=== PATIENT | female | born 1950 | race Caucasian/White ===

== ENCOUNTER → 2018-06-22 14:30 | Outpatient (CLI) | payer OTHER, SELFPAY | PROVIDERS: PCP Family Medicine; Visit Provider Student in an Organized Health Care Education/Training Program | DX: Z47.1 Aftercare following joint replacement surgery (principal); Z96.651 Presence of right artificial knee joint ==

== ENCOUNTER 2018-06-23 09:30 | Outpatient (RCR) | payer OTHER, SELFPAY ==
--- NOTE | 2018-06-23 10:01 | PTTR_ITS ---
DATE: 06/23/18 SUBJECTIVE: I am doing okay for the most part. OBJECTIVE: Manual therapy: ([id number]): Patient was placed in sitting and mobilized with gentle oscillatory traction through the knee while guided through a limited arc of motion from 60-10 degrees. She was then mobilized through anterior glides of the tibia on a fixed femur to improve articular glide and capsular extensibility. Patient rotated with tibial torsion through external and internal rotation. She was then mobilized through contract relax muscle energy technique with reduced muscle tension through the quad to allow further flexion ability. Patient tolerated treatment well and will be given the option to call in if there are any future mobilizations needed before she heads down to [place] for the winter. Direct treatment time: 30 minutes of direct patient care.
== END 2018-07-17 23:59 | disposition home or self-care (01) ==
LOC: PT 09:30
PROVIDERS: PCP Family Medicine; Referring Provider Student in an Organized Health Care Education/Training Program; Visit Provider Student in an Organized Health Care Education/Training Program
DX: Z47.1 Aftercare following joint replacement surgery (principal); Z96.651 Presence of right artificial knee joint
CPT/HCPCS: 97140

== ENCOUNTER → 2018-07-03 09:16 | Outpatient (REF) | payer OTHER, SELFPAY ==
[2018-07-03 12:53] LABS: HCT 44.4 % (36.0-46.0); HGB 14.4 g/dL (12.0-15.5); Mean Corp. HGB Concentration 32.4 g/dL (32.0-36.0); Mean Corpuscular Hemoglobin 27.8 pg (27.0-33.0); Mean Corpuscular Volume 85.7 fL (80-95); Mean Platelet Volume 11.7 fL (8.0-11.0); Platelet Count 197 x1000/uL (130-400); RBC 5.18 m/cumm (4.00-5.20); RBC Distribution Width 15.4 % (11.7-14.6); White Blood Cell Count 6.65 k/cumm (4.4-10.8)
[2018-07-03 16:01] LABS: ALT 25 U/L (12-78); AST 15 U/L (15-37); Albumin 3.6 g/dL (3.4-5.0); Alkaline Phosphatase 76 U/L (46-116); Anion Gap 11.2 mmol/L (3-11); BUN 22 mg/dL (7-18); Bilirubin, Total 0.4 mg/dL (0.2-1.0); CO2 25.8 mmol/L (21.0-32.0); CREATININE 0.84 mg/dL (0.55-1.02); Calcium 9.5 mg/dL (8.5-10.1); Chloride 105 mmol/L (98-107); Cholesterol 161 mg/dL (50-200); Glucose 91 mg/dL (70-100); HDL Cholesterol 47 mg/dL (40-60); LDL CHOLESTEROL 94 mg/dL (<100); Sodium 142 mmol/L (136-145); Total Protein 6.9 g/dL (6.4-8.2); Triglyceride 173 mg/dL (30-150)
[2018-07-03 21:06] LABS: TSH 1.77 uIU/mL (0.358-3.74)
== END ==
LOC: NCHCN 09:16
PROVIDERS: PCP Family Medicine; Visit Provider Family Medicine
DX: Z00.00 Encounter for general adult medical examination without abnormal findings (principal); I10 Essential (primary) hypertension; E78.5 Hyperlipidemia, unspecified
CPT/HCPCS: 80053; 80061; 83721; 85027; 84443

== ENCOUNTER 2018-08-06 00:14 | Outpatient (CLI) | payer OTHER, SELFPAY ==
--- NOTE | 2018-08-06 14:30 | DI.RAD_ITS ---
SYMPTOMS/DIAGNOSIS: MENOPAUSAL, Z78.0 DEXA SCAN: The scanogram of the dorsolumbar spine is unremarkable. For the left forearm, a T score of -0.7 and a Z score of 1.0 indicate osteopenia and an increased fracture risk. For the left hip, a T score of 1.1 and a Z score of 2.4 are within the normal range. For the lumbar spine, a T score of 0.5 and a Z score of 2.3 are within the normal range.
== END 2018-08-06 00:34 ==
PROVIDERS: PCP Family Medicine; Visit Provider Family Medicine
DX: M85.88 Other specified disorders of bone density and structure, other site (principal); Z78.0 Asymptomatic menopausal state
CPT/HCPCS: 77080

== ENCOUNTER 2019-03-18 08:53 | Outpatient (CLI) | payer OTHER, SELFPAY ==
--- NOTE | 2019-03-18 08:14 | HPE_ITS ---
Assessment and Plan (1) Left knee DJD: Current visit: No Status: Chronic Plan: Educated patient on surgery covering surgical technique via prosthesis models, recovery process, benefits and risks including but not limited to risk of infection, blood clot, damage to soft tissue/blood vessels/nerves in detail. After discussion patient gives verbal understanding of risks and elects to proceed with scheduling surgery. Discussed that post- operative DVT prophylaxis will be determined by Dr. Ly. As per patient she also requests larger TEDs be given so that she does not have stocking bunched behind her knee. Patient had opportunity to have questions answered to her satisfaction. She will contact office if issues arise. Patient will continue to be scheduled for left total knee replacement with Dr. Ly on 03/23/2019. Qualifiers: Osteoarthritis type: primary Qualified Code(s): M17.12 - Unilateral primary osteoarthritis, left knee History of Present Illness Narrative: Ms. Jerry is a 69-year-old female who presents to clinic for pre- operative visit for scheduled Left TKA with Dr. Ly on 03/23/19. Patient had originally presented to orthopedic clinic for complaints of bilateral knee soreness and stiffness restricting her flexibility. She is status post right total knee replacement on 02/22/2018 which was complicated with acute pulmonary embolism diagnosed on 03/26/2018. Patient was treated with Xarelto for a 4 month course. Patient states since having her right knee replaced she has continued to have restriction of her left knee. She states severely limited flexibility that affects activities of daily life. She describes pain as a soreness and stiffness aggravated with prolonged standing, attempting to squat, kneeling, sitting in the knee bent for more than a few minutes and most severely when descending stairs. Although patient has continued to swim daily for exercise she states she is unable to engage in other activities due to restricted left knee range of motion. As per patient she had previously tried corticosteroid injection in the left knee without symptomatic improvement - no injection history is noted in review of patient's chart. Patient has also tried Advil in the past without symptomatic improvement. Patient denies any trauma to the left knee. Denies symptoms of knee instability, giving out, numbness or tingling. Due to her continued left knee symptoms patient elected to proceed with left TKA. Pertinent Surgical Information Additional standing alignment film was not done since patient had standing alignment films done for postop right total knee replacement and since surgical order states OrthoAlign will be used. Patient's right knee had femoral component size 5, fixed platform tibial component size 4, 5 x 7 mm fixed, stabilized poly and patellar component size 32 mm. Patient underwent right total knee replacement on 03/24/18 but then developed shortness of breath while walking the hallway with physical therapist. She underwent a CT scan and was diagnosed with acute pulmonary embolism on postop day 2 (03/26/18). She was treated with Xarelto for total of 4 months. Patient states she discontinued Xarelto in July 2018. She denies any recurrent shortness of breath, respiratory or cardiac complaints. Denies past medical history of: stroke, angina, asthma, COPD, sleep apnea, renal issues, liver issues, hepatitis, gastrointestinal issues, ulcers, bleeding disorders, seizures, migraines, anxiety, depression, diabetes, autoimmune disorders, thyroid issues Denies prior complications from anesthesia. Review of Systems Constitutional Denies fever(s), Denies frequent falls and Denies headache(s) Eyes Denies change in vision ENT Denies dizziness, Denies ear discharge, Denies headache(s), Denies epistaxis, Denies nasal discharge and Denies sore throat Cardiovascular Denies chest pain, Denies chest pain at rest, Denies chest pain with activity, Denies diaphoresis, Denies rapid heart rate, Denies irregular heart rhythm, Denies palpitations, Denies dyspnea, Denies dyspnea on exertion, Denies ort hopnea, Denies paroxysmal nocturnal dyspnea and Denies slow heart rate Respiratory Denies cough, Denies dyspnea, Denies dyspnea on exertion and Denies wheezing Comments: Denies any shortness of breath since her PE was diagnosed on 03/26/18 Gastrointestinal Denies abdominal pain, Denies melena, Denies hematochezia, Denies constipation, Denies diarrhea, Denies nausea and Denies vomiting Genitourinary Denies hematuria, Denies dysuria and Denies urinary urgency Musculoskeletal Reports as per HPI, Denies numbness and Denies tingling Neurologic Denies dizziness, Denies frequent falls, Denies headache(s), Denies numbness and Denies tingling Psychiatric Denies anxiety and Denies depression Endocrine Denies palpitations Allergic/Immunologic Denies wheezing PFSH Medical History Hyperlipidemia (Chronic) Hypertension (Chronic) Left knee DJD (Chronic) History of pulmonary embolism (Chronic) Surgical History Status post tonsillectomy and adenoidectomy (Chronic) History of carpal tunnel release (Chronic) Status post total right knee replacement (Chronic) Colonoscopy - IV Sedation (06/25/16) Family History Mother No problems noted. Father Stroke Hypertension Social History Smoking/Tobacco Use Status: Never Drug use: Never Meds Home Medications Medication Instructions Recorded Confirmed Type hydrochlorothiazide 25 mg PO DAILY tab-cap 04/25/16 03/18/19 History simvastatin 40 mg PO HS tab-cap 04/29/16 03/18/19 History Allergies Allergy/AdvReac Type Severity Reaction Status Date / Time No Known Allergies Allergy Unverified 03/19/19 10:09 Exam Const General: cooperative and no acute distress HENMT Head: normal to inspection, normocephalic and atraumatic Ears: external ears normal General nose exam: external nose normal and no nasal discharge Face and sinus: face symmetric Mouth: oral mucosae normal, lip normal, tongue normal and moist mucous membranes Teeth and gingiva: dentition normal Throat: posterior oropharynx normal Eyes General: appearance normal, both eyes and all related structures Pupils: PERRL EOM: EOM intact bilaterally Neck Neck: trachea midline Carotids: normal carotid upstroke Lymphatic: no lymphadenopathy noted Resp Effort & Inspection: normal respiratory effort and able to speak in complete sentences Auscultation: clear to auscultation bilaterally, no rales, no rhonchi and no wheezes Cardio Heart Sounds: S1 normal, S2 normal and no murmurs Pulses: radial pulses present bilaterally GI Palpation: soft, no hepatosplenomegaly and nontender Auscultation: normal bowel sounds Skin General skin exam: no rashes or lesions noted Extrem Other: Left knee examination: Skin is intact without signs of erythema, lesions or rash. No signs of effusion are noted. Active range of motion is short of full extension by 20 degrees and yields flexion of 75 degrees. Passive range of motion is short of full extension by 15 degrees and yields flexion of 90 degrees with slight discomfort elicited at end of range of motion. Knee is stable to valgus and varus stress. Results Labs : 03/18/19 09:45 03/18/19 09:45
[2019-03-18 10:12] LABS: HCT 45.8 % (36.0-46.0); HGB 15.2 g/dL (12.0-15.5); Mean Corp. HGB Concentration 33.2 g/dL (32.0-36.0); Mean Corpuscular Hemoglobin 28.5 pg (27.0-33.0); Mean Corpuscular Volume 85.9 fL (80-95); Mean Platelet Volume 10.8 fL (8.0-11.0); Platelet Count 244 x1000/uL (130-400); RBC 5.33 m/cumm (4.00-5.20); RBC Distribution Width 15.2 % (11.7-14.6); White Blood Cell Count 7.04 k/cumm (4.4-10.8)
[2019-03-18 10:44] LABS: Anion Gap 11.3 mmol/L (3-11); BUN 17 mg/dL (7-18); CO2 27.7 mmol/L (21.0-32.0); CREATININE 0.88 mg/dL (0.55-1.02); Calcium 9.7 mg/dL (8.5-10.1); Chloride 102 mmol/L (98-107); Glucose 96 mg/dL (70-100); Potassium 3.1 mmol/L (3.5-5.1); Sodium 141 mmol/L (136-145)
== END 2019-03-18 09:13 ==
PROVIDERS: PCP Family Medicine; Visit Provider Student in an Organized Health Care Education/Training Program
DX: M25.562 Pain in left knee (principal); M17.12 Unilateral primary osteoarthritis, left knee; Z01.818 Encounter for other preprocedural examination
CPT/HCPCS: 36415; 80048; 85027; NC

== ENCOUNTER 2019-03-23 08:24 | Inpatient (IN) | payer OTHER, SELFPAY ==
[2019-03-18 09:09] VITALS: BP 138/90; PULSE 86; RESP 18; TEMP 36.7; O2SAT 95
[2019-03-18 09:14] VITALS: BP 138/90; PULSE 86; RESP 18; TEMP 36.7; O2SAT 95
[2019-03-23] VITALS (12 sets, daily range): BP systolic 106–141; BP diastolic 50–85; PULSE 58–80; RESP 11–20; TEMP 35.5–36.6; O2SAT 94–100
[2019-03-23] MEDS: Lactated Ringers 1,000 ML 80 ML IV ×2 (08:59→15:02)
[2019-03-23] MEDS: Celecoxib 200 MG CAP 400 MG PO (09:46)
[2019-03-23] MEDS: Acetaminophen 500 MG TAB 1000 MG PO ×2 (09:46→17:54)
[2019-03-23] MEDS: oxyCODONE-CR 10 MG TABCR PO (09:47)
[2019-03-23] MEDS: Gabapentin 300 MG CAP PO ×2 (09:47→21:21)
[2019-03-23] MEDS: Bupivacaine LIPOSOME/PF 133 MG/10 ML VIAL IJ ×2 (10:40→12:50)
[2019-03-23] MEDS: ceFAZolin 2 GM/50 ML BAG IVPB (11:10)
[2019-03-23] MEDS: Ketorolac 30 MG/ML VIAL (12:50)
[2019-03-23] MEDS: Normal Saline 50 ML (12:50)
[2019-03-23] MEDS: Bupivacaine 0.25% Pres-Free 30 ML VIAL (12:50)
[2019-03-23] MEDS: oxyCODONE 5 MG TAB PO (15:33)
[2019-03-23] MEDS: Rivaroxaban 10 MG TABLET PO (19:54)
[2019-03-23] MEDS: Celecoxib 100 MG CAP PO (19:55)
[2019-03-23] MEDS: Simvastatin 40 MG TAB PO (21:21)
[2019-03-24] MEDS: Lactated Ringers 1,000 ML 80 ML IV (02:24)
[2019-03-24] MEDS: Acetaminophen 500 MG TAB 1000 MG PO ×3 (02:58→18:10)
[2019-03-24 03:27] VITALS: BP 101/59; PULSE 71; RESP 18; TEMP 36.8; O2SAT 97
--- NOTE | 2019-03-24 05:51 | ROE_ITS ---
Date of service: 03/23/19 Time of Service: 14:46 Operative Note DATE OF PROCEDURE: 03/23/19 PRE-OP DIAGNOSIS: Left Knee Arthritis POST-OP DIAGNOSIS: same PROCEDURE: Left Total Knee Arthroplasty with Intraoperative Navigation SURGEON: Rk Ly EDGE DRUMMER: Perri Aragon ANESTHESIA: regional and spinal ESTIMATED BLOOD LOSS: 400 PATHOLOGY: none sent TOURNIQUET TIME: 15 COMPLICATIONS: None Patient was transported to: PACU Patient's condition: stable Implants: 1. Depuy Attune Posterior Stabilized Femoral Component, Size 5 2. Depuy Attune Fixed Platform Tibial Component, Size 4 3. Depuy Attune 5 x 8 mm fixed, Stabilized Poly 4. Depuy Attune Patellar Component, Size 32 mm Indications: I have seen Wanda in clinic for symptoms of knee arthritis, confirmed with radiographic findings. Wanda has exhausted nonoperative methods and was having significant limitations in daily function and desired better function and less pain. She successfully underwent a total knee replacement on the right side with excellent results. I discussed the technical details of a knee replacement. I explained the risks of the procedure to include, but not limited to, bleeding, infection, pain, stiffness, fracture, damage to nerves and vessels, damage to muscles and tendons, loosening, need for repeat procedure, blood clot and cardiopulmonary demise. Despite these risks, Wanda elected to proceed. Findings: There was significant signs of arthritis throughout the knee. Large osteophytes are present throughout especially posteriorly where time was taken to remove large impinging osteophytes from the posterior femur and tibia. Procedure Description: Wanda was greeted in the preoperative holding area where the correct side was identified and marked. The consent was reviewed with the patient and signed. The history and physical was updated. All questions were answered. Preoperative mediacations were administered: Acetaminophen 1000mg, Celebrex 400mg, Gabapentin 300mg, and Oxycontin 10mg. An adductor canal block was then administered by the anesthesia team in the PACU. She was taken back to the operating room. A spinal anesthestic was then administered. The patient was placed into the supine position on the operating room table. A nonsterile tourniquet was placed high onto the leg but only used for cementing. Posts were placed for positioning during the procedure. All bony prominences were well padded. Prophylactic antibiotics in the form of cefazolin were administered. 1g of Tranxemic Acid was given intravenously within 30 minutes of incision. The left leg was then prepped with Chloraprep and draped in a standard fashion with impervious stockinette and extremity drape with Iodine impregnated skin protection. A timeout to confirm correct identity, side and site, procedure, allergies, anesthesia, and medical concerns was performed. With the knee in some flexion, a midline incision was made overlying the knee. Full thickness skin flaps were raised once the extensor mechanism was encountered. These were raised medially and laterally. Any bleeding was controlled with electrocautery. Once the extensor mechanism was fully exposed, a medial parapatellar arthrotomy was performed in a flexed position. All bleeding from the arthrotomy and the geniculate arteries was coagulated. A medial subperiosteal peel was performed with electrocautery to the midcoronal plane. Due to the significant varus deformity the entire medial tibial plateau was exposed. The fat pad was removed while keeping the patellar tendon protected. The anterior distal femur synovium was removed for later visualization. The ACL and PCL were resected and the anterior horn of the lateral meniscus was transected. The knee was then flexed with the patella everted. Large osteophytes from the tibia were removed. Large osteophytes from the femur were removed. There is a large central osteophyte seen within the notch extending posteriorly behind the femur which was unable to be exposed at this time but was taken care of later. A single starting pin was then placed 1cm anterior to the PCL insertion and the notch in the direction of the femoral head. The OrthoAlign device was applied o myles the pin. It was oriented to be in line with the epicondylar axis and the trochlear groove. It was then pinned into place. The navigation computer was then turned on and calibrated. The distal femur cut was set at 0 degrees varus/valgus and 2.5 degrees flexion. The distal femur cutting guide then was positioned for a 11 mm cut. The distal femur was cut with an oscillating saw while protecting the soft tissues. The tibia was then addressed. The OrthoAlign device was placed over the tibial tubercle and medial tibia and secured into position. Once again, OrthoAlign was calibrated and then set for a 0 degree varus/valgus cut and 3 degrees of posterior slope. With this locked into position, the cut thickness stylus was used to assess cut thickness. The medial side, most involved side, was set for a 2mm cut. This was then held in position and pinned into place with 2 additional pins and a cross pin for stability. The medial and lateral collateral ligaments were protected and the cut was performed. With this completed, it was assessed and noted to be of appropriate dimensions. The guide and OrthoAlign was removed. A spacer block was inserted and the knee was brought into extension. The 6 mm spacer block provided full extension, without hyperextension and with stability of both the medial and lateral collateral ligaments was assessed. The pins from the femur and the tibia were then removed. The distal femur was then sized. The anterior stylus was placed onto the lateral ridge of the anterior femur. This indicated a size 5 femur. The external rotation of the guide was adjusted to 3 degrees to match the epicondylar axis, perpendicular to [place]?s line. The 4-in-1 cutting guide was the placed. The posterior medial femur cut was evaluated and appeared of good thickness. The spacer block was inserted underneath the cutting guide and stability was confirmed in 90 degrees of flexion. An manish wing was used to confirm appropriate position of the anterior cut to avoid notching. This cutting guide was ensured to be flush on the cut surface and then pinned into place with headed pins. While protecting the soft tissues, quad tendon, and collateral ligaments, the anterior and posterior cuts were performed with a saw. The central two pins were removed and the posterior and anterior chamfers were cut next. The notch-cutting guide was placed. This was pinned to lateralize the femoral component as much as possible while keeping it flush on the cut surface. This was then pinned into position. A reciprocating saw was used to make the notch cut. A rasp smoothed the cut surfaces. Using a curved osteotome I remove large osteophytes from the posterior aspect of the femur. I had a stripped off some the posterior soft tissues from the femur. Large osteophytes from the posterior aspect of the tibia were also removed. A trial posterior stabilized femoral component was then inserted, impacted down to the cut surfaces, and the lug hole s were drilled. A provisional trial tibial component was placed and the knee was brought through range of motion. The polyethylene was trialed until there was good flexion and extension with excellent stability to the medial and lateral collaterals. The patella was tracking without thumbs. The tibial cut surface was fully exposed. The medial and lateral menisci were removed. The tibia was then sized as a 4. The tibia had been previously marked during trialing to correspond to the center of the tibial component to help with rotation. The trial was aligned to this alba, approximately rotated to the medial 1/3rd of the tibial tubercle. The trial was pinned into place. The tibia was prepared with a reamer and a keel punch. The knee was then brought into extension and the patella was measured as 25 mm. Using the patellar clamp and cut guide, this was resected to a flat surface with at least 13mm of thickness remaining. The size 32 patella fit the best. This was oriented and then clamped into position. The lugs were drilled. The trial components were removed. The final components, except for the polyethylene were opened on the back table. The periosteal and capsular tissues, especially posteriorly, around the knee were then systematically injected with a periarticular cocktail consisting of 50cc 0.25% Marcaine, 30mg Ketorolac, 20cc of Exparal and 50cc of injectable saline. The tourniquet was then inflated to 275mmHg. The knee was thoroughly irrigated with a pulse lavage and dried. On the back table, with the implants opened, the cement was mixed. 2 batches of antibiotic laden cement were prepared with vacuum assistance. After the cement was ready a small amount was placed on to the back side of the tibial component at the keel. A small amount was placed onto the posterior flange of the femur. Cement was manual pressurized and impregnated into the cut surface of the tibia. The tibial component was then inserted into the cut surface and impacted into position. Excess cement was removed and the component was reimpacted. Again, excess cement was removed and our attention was then turned to the femur. The femoral cut surface was once again dried and cement was manually impacted into the cut surface. The femoral component was lined with the lug holes and impacted. Excess cement was removed. It was ensured to be down against the cut surface. The trial polyethylene was then inserted and the leg was brought out into full extension for the duration of the cement curing process, approximately 15min. Cement was lastly manually impacted into the cut surface of the patella and the patellar button was clamped into position and held. During this process attention was turned to the gutters of the knee and for all interfaces for any e xcess cement. After the cement had finally cured, approximately 15min, the clamp was removed from the patella and the knee was taken through range of motion. A size 8 mm polyethylene component provided the best range of motion and stability with less than 2mm gapping with medial and lateral stress and full extension without significant hyperextension. The patella was tracking with a no-thumbs technique. The trial poly was removed and once again the knee was checked for any loose, excess, or errant cement. The poly component was then inserted and impacted into position after cleaning and drying the tibial tray. The capsule was then reapproximated with a No. 1 Vicryl at multiple locations. The capsule was finally closed with a No. 2 Stratafix, barbed suture. The tourniquet was then released and the arthrotomy appeared watertight without significant bleeding. The second dosing of 1g TXA was started. Deep tissues were then reapproximated with 0 Vicryl and 2-0 Vicryl. The skin was closed with a running 3-0 Monocryl in a subcuticular fashion. This was reinforced with skin glue. A Mepilex silver dressing was applied along with a [id number] FREDY wrap. A CryoCuff was applied. Wanda was transferred to the hospital bed without difficulty an suffering no apparent complication. Wanda has a good prognosis. Physical therapy will start today and without restrictions, weight-bearing as tolerated. Rivaroxaban 10 mg a day will be used for DVT prophylaxis given her history of pulmonary embolism.
[2019-03-24 07:31] LABS: HCT 35.8 % (36.0-46.0); HGB 11.4 g/dL (12.0-15.5); Mean Corp. HGB Concentration 31.8 g/dL (32.0-36.0); Mean Corpuscular Hemoglobin 27.9 pg (27.0-33.0); Mean Corpuscular Volume 87.7 fL (80-95); Mean Platelet Volume 10.6 fL (8.0-11.0); Platelet Count 245 x1000/uL (130-400); RBC 4.08 m/cumm (4.00-5.20); RBC Distribution Width 14.9 % (11.7-14.6); White Blood Cell Count 8.85 k/cumm (4.4-10.8)
[2019-03-24 07:34] LABS: Anion Gap 5.7 mmol/L (3-11); BUN 22 mg/dL (7-18); CO2 30.3 mmol/L (21.0-32.0); CREATININE 0.81 mg/dL (0.55-1.02); Calcium 8.5 mg/dL (8.5-10.1); Chloride 105 mmol/L (98-107); Glucose 92 mg/dL (70-100); Potassium 3.1 mmol/L (3.5-5.1); Sodium 141 mmol/L (136-145)
[2019-03-24 07:36] VITALS: BP 110/60; PULSE 72; RESP 16; TEMP 36.1; O2SAT 92
--- NOTE | 2019-03-24 07:58 | PDOC.CMIN ---
Care Management Initial Assess REASON FOR HOSPITALIZATION:: (L) Knee DJD PAST MEDICAL HISTORY/PAST SURGICAL HISTORY:: Depression, Hypertension, High Cholesterol, right hand carpal tunnel release PREVIOUS FUNCTIONAL STATUS/SOCIAL/FAMILY SUPPORTS:: Marsha resides in [place] with her significant other, David. She also has a son Tomas who she reports she is very close with. Marsha worked for more than forty years as a [employer] and reports missing the social aspect of the work but shares that David and herself spend [place] in a 55[place] community of which she has many friends. She reports being a member locally with [employer] which also keeps her busy. Marsha reports being independent with all ADLs in the community. CURRENT FUNCTIONAL STATUS:: Marsha was lying in bed, her significant other, David at her bedside. She shared concerns regarding increased discomfort and mobility, sharing that her car is a distance from her home and she has three steps to enter and did not feel ready at this time. CM reviewed CM contact info and assured Marsha she would not be discharged home until she could do so safely. ADVANCE DIRECTIVES:: Marsha reports she has completed the document with a local sports lawyer and believes her son Tomas is named as Agent. Has patient been provided with information about the portal?: Yes Did the patient sign up for the portal?: No CODE STATUS:: Full Code INSURANCE COVERAGE / FINANCIAL ISSUES:: [facility] Medicare Replacement CURRENT HOME/COMMUNITY SERVICES/EQUIPMENT:: OP/PT with [facility]. FWW, 4WW, 4 prong cane. PRIMARY CARE PHYSICIAN:: Luna Freire; [facility] POTENTIAL DISCHARGE NEEDS:: Follow up appointment with Dr. Ly, PCP. PATIENT/FAMILY EDUCATION NEEDS:: Review discharge instructions, discuss Ask Me Three. ANTICIPATED BARRIERS TO DISCHARGE:: None identified. TRANSPORTATION:: Via private vehicle with her significant other; David. PLAN:: Marsha will return home when ready per MD. She will follow up with Dr. Ly and her plan of care as prescribed including activity restrictions and medication recommendations. She has all DME needed for discharge. Marsha will transport home via private vehicle with her significant other; David.
[2019-03-24] MEDS: Pantoprazole 40 MG TABCR PO (08:01)
[2019-03-24] MEDS: oxyCODONE 5 MG TAB PO ×3 (08:01→18:10)
--- NOTE | 2019-03-24 08:04 | INITIAL_ITS ---
Care Management Initial Assess REASON FOR HOSPITALIZATION:: (L) Knee DJD PAST MEDICAL HISTORY/PAST SURGICAL HISTORY:: Depression, Hypertension, High Cholesterol, right hand carpal tunnel release PREVIOUS FUNCTIONAL STATUS/SOCIAL/FAMILY SUPPORTS:: Marsha resides in [place] with her significant other, David. She also has a son Tomas who she reports she is very close with. Marsha worked for more than forty years as a [employer] and reports missing the social aspect of the work but shares that David and [place] of which she has many friends. She reports being a member locally with [employer] which also keeps her busy. Marsha reports being independent with all ADLs in the community. CURRENT FUNCTIONAL STATUS:: Marsha was lying in bed, her significant other, David at her bedside. She shared concerns regarding increased discomfort and mobility, sharing that her car is a distance from her home and she has three steps to enter and did not feel ready at this time. CM reviewed CM contact info and assured Marsha she would not be discharged home until she could do so safely. ADVANCE DIRECTIVES:: Marsha reports she has completed the document with a local mail deliverer and believes her son Tomas is named as Agent. Has patient been provided with information about the portal?: Yes Did the patient sign up for the portal?: No CODE STATUS:: Full Code INSURANCE COVERAGE / FINANCIAL ISSUES:: [facility] Medicare Replacement CURRENT HOME/COMMUNITY SERVICES/EQUIPMENT:: OP/PT with [facility]. FWW, 4WW, 4 prong cane. PRIMARY CARE PHYSICIAN:: Luna Freire; [facility] POTENTIAL DISCHARGE NEEDS:: Follow up appointment with Dr. Ly, PCP. PATIENT/FAMILY EDUCATION NEEDS:: Review discharge instructions, discuss Ask Me Three. ANTICIPATED BARRIERS TO DISCHARGE:: None identified. TRANSPORTATION:: Via private vehicle with her significant other; David. PLAN:: Marsha will return home when ready per MD. She will follow up with Dr. Ly and her plan of care as prescribed including activity restrictions and medication recommendations. She has all DME needed for discharge. Marsha will transport home via private vehicle with her significant other; David.
[2019-03-24] MEDS: Celecoxib 100 MG CAP PO ×2 (09:03→20:15)
[2019-03-24] MEDS: Potassium Chloride 20 MEQ TABCR PO (09:03)
[2019-03-24] MEDS: hydroCHLOROthiazide 25 MG TAB PO (09:03)
[2019-03-24] MEDS: Docusate Sodium 100 MG CAP PO (09:48)
[2019-03-24] MEDS: Normal Saline Flush 10 ML SYR IV (11:03)
--- NOTE | 2019-03-24 11:23 | PT.INIE ---
Date of service: 03/24/19 Time of Service: 08:08 PT Notes Inpatient Physical Therapy Evaluation Date: 03/24/2019 Referring Doctor: Rk Ly MD PT Orders: PT CONSULT: Status post left TKA Precautions: Fall. Standard. WBAT on L LE. Patient Profile/Admitting Diagnosis: Patient is a 69-year-old female referred to physical therapy services with the diagnosis of left knee DJD status post left total knee athropplasty on POD 1. PMHX: Medical History Hyperlipidemia (Chronic) Hypertension (Chronic) Left knee DJD (Chronic) History of pulmonary embolism (Chronic) Surgical History Status post tonsillectomy and adenoidectomy (Chronic) History of carpal tunnel release (Chronic) Status post total right knee replacement (Chronic) Colonoscopy - IV Sedation (06/25/16) Social History/Home Situation: Patient lives alone in a 1 floor house with a ramp to enter through the kitchen, rails on B sides. She was independent with all aspects of ADLs without the need for use of an AD nor adaptive equipment. Current Functional Limitations: Need for assistance in performing bed mobility using bedrail, transfers, and ambulation using FWW Equipment Owned/DME: Standard walker, [place] Subjective: Patient pleasant and cooperative. Reports that she had a restless night. She also states she had an increase in anxiety and reported she got clammy when assisted by LNAs to stand up last night. She states she has not moved her bowels yet. Objective: General Observation: Patient seen resting in bed. IV in L UE. FREDY wraps on L LE. Arora catheter in place,. Anti DVT pump on R leg. Mental Status: Alert and oriented x3 Pain: 2/10 at rest, 3/10 with weightbearing Vital Signs: In the supine 115/74 mmHg, 71 bpm, 94% on room air. In sitting, 124/77, 95% on room air, 83 bpm. In standing, 127/76 mmHg, 76 bpm, 95% on room air. ROM: Right Upper Extremity: Shoulder Flexion WFL. Shoulder abduction WFL. Elbow flexion WFL. Wrist flexion WFL. Functional opening and closing of hand WFL. Left Upper Extremity: Shoulder Flexion WFL. Shoulder abduction WFL. Elbow flexion WFL. Wrist flexion WFL. Functional opening and closing of hand WFL. Right Lower Extremity: Hip flexion WFL. Hip abduction WFL. Knee flexion WFL. Ankle dorsiflexion WFL. Ankle plantarflexion WFL. Left Lower Extremity: Hip flexion 0-100 range limited by abdominal panniculus. Hip abduction 0-20. Knee flexion 0 to 30 degree in supine passively. Sitting patient was able actively bankruptcy law specialist to 90 degrees with minimal discomfort at end range. Patient able to assume full knee extension actively. Ankle dorsiflexion WFL. Ankle plantarflexion WFL. Strength: Right Upper Extremity: Shoulder flexors 5/5. Shoulder abductors 5/5. Elbow flexors 5/5. Elbow extensors 5/5. Powder Mill Operator strong. Left Upper Extremity: Shoulder flexors 5/5. Shoulder abductors 5/5. Elbow flexors 5/5. Elbow extensors 5/5. Powder Mill Operator strong. Right Lower Extremity: Hip flexors 5/5. Hip abductors 5/5. Knee flexors 5/5. Knee extensors 5/5. Ankle dorsiflexors 5/5. Ankle plantarflexors 5/5. Left Lower Extremity:Hip flexors 3-/5. Hip abductors 3-/5. Knee flexors 3-/5. Knee extensors 4-/5. Ankle dorsiflexors 4+/5. Ankle plantarflexors 4+/5. Sensation: Intact chest pain and pressure on right LE, diminished on left LE. Bed Mobility/Transfers: Rolling minimal assist to left LE Supine to sit minimal assist to left LE Sit to supine minimal assist to left LE Sit to stand minimal assist with FWW Stand to sit minimal assist with FWW Bed to chair minimal assist with FWW Chair to bed minimal assist with FWW Gait: Patient was able to tolerate in room ambulation with CGA, 5 feet forward and 5 feet backward, minimal verbal cues needed for walker management and step-to gait pattern. Patient anxious about walking activity but subsided when she found out when she is able to walk with a walker. Balance: Static Sitting: Good Dynamic Sitting: Good Static Standing: Fair Dynamic Standing: Fair Special Tests: Mobility Limitations Standardized Measure [facility] AM-PAC 6 clicks Basic Mobility Inpatient Short Form: Raw Score: 18 CMS Score: 47% deficit Informed Consent/Education: Patient instructed in purpose of PT consult and plan of care. Patient was also instructed on hourly performance of gluteal settings as well as ankle pumping x 30 in order to maximize range goals. Assessment: Patient is a 69 year old female referred to physical therapy services with the diagnosis of left knee DJD status post left total knee athropplasty. Patient presents with clinical signs and symptoms consistent with current/admitting diagnoses that have resulted to mobility limitations, gait instability, generalized weakness, and impairment of motor control as demonstrated by the following impairment level findings: 1. Decreased strength Madi LE major muscle groups 2. Impaired sitting/standing balance 3. Impaired activity tolerance 4. Limitation of joint range of motion in left hip Impairments are contributing to the following functional limitations: 1. Dependent bed mobility skills 2. Increased dependence with transfers 3. Inability to safely ambulate without assistive device and physical assistance 4. Increase completion time for mobility ADL performance 5. Increased fall risk 6. Inability to negotiate steps alone safely Patient is assessed as a Moderate 24072 complexity based on the following: History: 69-year-old female referred to physical therapy services with the diagnosis of left knee DJD status post left total knee athropplasty Examination: Underlying impairments and functional limitations as noted Presentation: Evolving Decision Makin moderate Goals: Goals X1 week 1. Supine-Sit independent 2. Sit-Supine independent 3. Sit-Stand independent 4. Stand-Sit independent 5. Bed-Chair independent 6. Chair-Bed independent 7. Independent gait on level surface with use of least restrictive device for at least 300 feet without report of pain nor dyspnea 8. Independent stair negotiation while holding onto bilateral rails for at least 5 steps without report of pain nor dyspnea 9. Independent with home exercise program 10. Good static and dynamic standing balance/tolerance Plan of Care/Treatment Plan: 1-2x/day, 7 days/week x 1 week. Plan of care has been reviewed with the ASSEMBLER CHASSIS providing the service under Physical Therapy direction. Initiate Physical Therapy intervention for strengthening, bed mobility, transfers, gait, stairs, balance training, use of assistive device. DISCHARGE RECOMMENDATIONS: Patient will benefit from PT services to maximize functional mobility level, progress assistive ambulatory device use, assess home safety, establish/implement a functional maintenance program for fall reducetion nad progressive strengthening. TREATMENT CODE/TIME: 41329 for 30 minutes, 73575 x 1 beginning at 8:08 am. Thank you for this referral. Lynne Rico, PT, DPT, CLT [facility]
--- NOTE | 2019-03-24 11:32 | IN_ITS ---
Date of service: 03/24/19 Time of Service: 08:08 PT Notes Inpatient Physical Therapy Evaluation Date: 03/24/2019 Referring Doctor: Rk Ly MD PT Orders: PT CONSULT: Status post left TKA Precautions: Fall. Standard. WBAT on L LE. Patient Profile/Admitting Diagnosis: Patient is a 69-year-old female referred to physical therapy services with the diagnosis of left knee DJD status post left total knee athropplasty on POD 1. PMHX: Medical History Hyperlipidemia (Chronic) Hypertension (Chronic) Left knee DJD (Chronic) History of pulmonary embolism (Chronic) Surgical History Status post tonsillectomy and adenoidectomy (Chronic) History of carpal tunnel release (Chronic) Status post total right knee replacement (Chronic) Colonoscopy - IV Sedation (06/25/16) Social History/Home Situation: Patient lives alone in a 1 floor house with a ramp to enter through the kitchen, rails on B sides. She was independent with all aspects of ADLs without the need for use of an AD nor adaptive equipment. Current Functional Limitations: Need for assistance in performing bed mobility using bedrail, transfers, and ambulation using FWW Equipment Owned/DME: Standard walker, SC Subjective: Patient pleasant and cooperative. Reports that she had a restless night. She also states she had an increase in anxiety and reported she got clammy when assisted by LNAs to stand up last night. She states she has not moved her bowels yet. Objective: General Observation: Patient seen resting in bed. IV in L UE. FREDY wraps on L LE. Arora catheter in place,. Anti DVT pump on R leg. Mental Status: Alert and oriented x3 Pain: 2/10 at rest, 3/10 with weightbearing Vital Signs: In the supine 115/74 mmHg, 71 bpm, 94% on room air. In sitting, 124/77, 95% on room air, 83 bpm. In standing, 127/76 mmHg, 76 bpm, 95% on room air. ROM: Right Upper Extremity: Shoulder Flexion WFL. Shoulder abduction WFL. Elbow flexion WFL. Wrist flexion WFL. Functional opening and closing of hand WFL. Left Upper Extremity: Shoulder Flexion WFL. Shoulder abduction WFL. Elbow flexion WFL. Wrist flexion WFL. Functional opening and closing of hand WFL. Right Lower Extremity: Hip flexion WFL. Hip abduction WFL. Knee flexion WFL. Ankle dorsiflexion WFL. Ankle plantarflexion WFL. Left Lower Extremity: Hip flexion 0-100 range limited by abdominal panniculus. Hip abduction 0-20. Knee flexion 0 to 30 degree in supine passively. Sitting patient was able actively syrup machine laborer to 90 degrees with minimal discomfort at end range. Patient able to assume full knee extension actively. Ankle dorsiflexion WFL. Ankle plantarflexion WFL. Strength: Right Upper Extremity: Shoulder flexors 5/5. Shoulder abductors 5/5. Elbow flexors 5/5. Elbow extensors 5/5. Melt Room Operator strong. Left Upper Extremity: Shoulder flexors 5/5. Shoulder abductors 5/5. Elbow flexors 5/5. Elbow extensors 5/5. Melt Room Operator strong. Right Lower Extremity: Hip flexors 5/5. Hip abductors 5/5. Knee flexors 5/5. Knee extensors 5/5. Ankle dorsiflexors 5/5. Ankle plantarflexors 5/5. Left Lower Extremity:Hip flexors 3-/5. Hip abductors 3-/5. Knee flexors 3-/5. Knee extensors 4-/5. Ankle dorsiflexors 4+/5. Ankle plantarflexors 4+/5. Sensation: Intact chest pain and pressure on right LE, diminished on left LE. Bed Mobility/Transfers: Rolling minimal assist to left LE Supine to sit minimal assist to left LE Sit to supine minimal assist to left LE Sit to stand minimal assist with FWW Stand to sit minimal assist with FWW Bed to chair minimal assist with FWW Chair to bed minimal assist with FWW Gait: Patient was able to tolerate in room ambulation with CGA, 5 feet forward and 5 feet backward, minimal verbal cues needed for walker management and step- to gait pattern. Patient anxious about walking activity but subsided when she found out when she is able to walk with a walker. Balance: Static Sitting: Good Dynamic Sitting: Good Static Standing: Fair Dynamic Standing: Fair Special Tests: Mobility Limitations Standardized Measure [facility] AM-PAC 6 clicks Basic Mobility Inpatient Short Form: Raw Score: 18 CMS Score: 47% deficit Informed Consent/Education: Patient instructed in purpose of PT consult and plan of care. Patient was also instructed on hourly performance of gluteal settings as well as ankle pumping x 30 in order to maximize range goals. Assessment: Patient is a 69 year old female referred to physical therapy services with the diagnosis of left knee DJD status post left total knee athrop plasty. Patient presents with clinical signs and symptoms consistent with current/admitting diagnoses that have resulted to mobility limitations, gait instability, generalized weakness, and impairment of motor control as demonstrated by the following impairment level findings: 1. Decreased strength Madi LE major muscle groups 2. Impaired sitting/standing balance 3. Impaired activity tolerance 4. Limitation of joint range of motion in left hip Impairments are contributing to the following functional limitations: 1. Dependent bed mobility skills 2. Increased dependence with transfers 3. Inability to safely ambulate without assistive device and physical assistance 4. Increase completion time for mobility ADL performance 5. Increased fall risk 6. Inability to negotiate steps alone safely Patient is assessed as a Moderate 98437 complexity based on the following: History: 69-year-old female referred to physical therapy services with the diagnosis of left knee DJD status post left total knee athropplasty Examination: Underlying impairments and functional limitations as noted Presentation: Evolving Decision Makin moderate Goals: Goals X1 week 1. Supine-Sit independent 2. Sit-Supine independent 3. Sit-Stand independent 4. Stand-Sit independent 5. Bed-Chair independent 6. Chair-Bed independent 7. Independent gait on level surface with use of least restrictive device for at least 300 feet without report of pain nor dyspnea 8. Independent stair negotiation while holding onto bilateral rails for at least 5 steps without report of pain nor dyspnea 9. Independent with home exercise program 10. Good static and dynamic standing balance/tolerance Plan of Care/Treatment Plan: 1-2x/day, 7 days/week x 1 week. Plan of care has been reviewed with the HUMAN RESOURCES ANALYST providing the service under Physical Therapy direction. Initiate Physical Therapy intervention for strengthening, bed mobility, transfers, gait, stairs, balance training, use of assistive device. DISCHARGE RECOMMENDATIONS: Patient will benefit from PT services to maximize functional mobility level, progress assistive ambulatory device use, assess home safety, establish/implement a functional maintenance program for fall reducetion nad progressive strengthening. TREATMENT CODE/TIME: 76933 for 30 minutes, 26264 x 1 beginning at 8:08 am. Thank you for this referral. Lynne Rico, PT, DPT, CLT [facility]
--- NOTE | 2019-03-24 15:10 | PT.INTREAT ---
Date of service: 03/24/19 Time of Service: 15:10 PT Notes Inpatient Physical Therapy Treatment Note [facility] Date: 03/24/19 PRECAUTIONS: Fall, WBAT on L SUBJECTIVE: Wanda reports that she is feeling anxious about taylor pain she could have from moving her knee and getting up and walking on it. OBJECTIVE: PAIN: Patient c/o pain in L knee with transfers, ther ex, and knee flexion BED MOBILITY/TRANSFERS Supine-sit: Min A of L LE Sit-supine: Min A of L LE Sit-stand: SBA Stand-sit: SBA Bed-chair: CGA GAIT Assistive Device: FWW Weight bearing: WBAT L Assist: CGA Distance: 10' + 20' Deviation: Step-to gait pattern, slow sade THEREX: Patient completed a LE strengthening and stabilization program, as per flow sheet. She requires assist for SLR, heel slides, and hip abduction exercises. She ends with cryocuff to L knee. TOILETING: Patient toileted with SBA for transfers ASSESSMENT: Patient tolerated session with c/o L knee discomfort, as well as anxiety regarding pain. Patient was able to tolerate a progression in gait distance with FWW support and CGA, demonstrating slow sade and step-to gait pattern. Patient would benefit from continued gait and transfer training, as well as strengthening for improved mobility and ability to perform daily functional tasks at a more independent level. PLAN: Continue with PT's POC TREATMENT CODE/TIME: 25 minutes; 95489, 23653
--- NOTE | 2019-03-24 15:31 | CHAPLAIN ---
Marsha was resting in bed and visiting with her when I stopped in. She said she's been up walking around a little bit and expects to go home tomorrow. She is a member of the [employer] but was not interested in having me call her miller rod mill, Rev. Trinh Espinoza.
[2019-03-24 15:44] VITALS: BP 103/65; PULSE 74; RESP 16; TEMP 36.1; O2SAT 93
--- NOTE | 2019-03-24 17:51 | W.PM.PROGNOT ---
Date of Service Date of service: 03/24/19 Time of Service: 07:51 Assessment and Plan (1) Left knee DJD: Current visit: Yes Status: Chronic Wanda is postop day #1 status post left knee replacement. She is having a good bit of pain. I have encouraged her to take pain medications. She is also reluctant to move the knee inferior having pain. Her preoperative range of motion was about 25-75. It is very possible that these tissues have been moved in such way that she is having significant pain from this. I also had removed a large amount of osteophytes from throughout the knee. This is going to cause trauma to the surrounding tissues. Nevertheless, it is imperative that we move. I have encouraged her that she is not can hurt anything and that pain can be managed. She will continue work physical therapy. We will continue rivaroxaban for anticoagulation with history of pulmonary embolism. Her hemoglobin did drop from acute blood loss anemia but it is stable and not in a range to consider transfusion. Her vital signs are stable. No signs of ulnar embolus. Continue with weightbearing as tolerated physical therapy. Continue with pain control. Qualifiers: Osteoarthritis type: primary Qualified Code(s): M17.12 - Unilateral primary osteoarthritis, left knee Subjective Interval history since last seen: Wanda is a status post left knee replacement. In general, she does feel fairly sore throughout the leg especially the anterior thigh. She has been reluctant to move the knee because it does cause pain. She has been reluctant to take pain medications but the last nurse has encouraged her to do so when she does find relief when she takes it. She was able to stand for a period of time and take a few steps. However, she is very reluctant to place all of her weight on it. She is very apprehensive and anxious about having pain. She denies any numbness or tingling. She denies any fevers or chills. She has had no shortness of breath, palpitations, chest pain, difficulty breathing. She has not had to have any oxygen applied. Her Montalvo catheter was removed early this morning and she has already voided. Exam Narrative Exam Narrative: Evaluate the left knee shows an Ray wrap in position. There is some swelling that is palpated throughout the knee. She is able to dorsiflex and plantar flex the foot. Sensation intact light touch over the deep and superficial peroneal nerves and tibial nerves. She is unable to straight leg raise. The knee is held in about 20 degrees of flexion. When I passively move the knee she does resist with reported pain. Objective Objective Clinical Data: Abnormal lab results 03/24/19 03/24/19 Range/Units 06:35 06:35 Hgb 11.4 L (12.0-15.5) g/dL Hct 35.8 L (36.0-46.0) % MCHC 31.8 L (32.0-36.0) g/dL RDW 14.9 H (11.7-14.6) % Potassium 3.1 L (3.5-5.1) mmol/L BUN 22 H (7-18) mg/dL Vital Signs Temperature 36.1 C L 03/24/19 15:44 Temperature Source Tympanic 03/24/19 15:44 Pulse 74 03/24/19 15:44 Pulse Rhythm Regular 03/24/19 11:59 Respiratory Rate 16 03/24/19 15:44 Respiratory Effort Non-Labored 03/24/19 11:59 Respiratory Depth Normal 03/24/19 11:59 Respiratory Pattern Normal 03/24/19 11:59 Blood Pressure 103/65 03/24/19 15:44 Pulse Oximetry 93 L 03/24/19 15:44 Respiratory End-tidal CO2 34 03/23/19 14:30 Oxygen Delivery Method Room Air 03/24/19 15:44 Oxygen Flow Rate 0 03/24/19 15:44 Pain Level 1 03/24/19 13:18 Intake & Output 03/23/19 03/24/19 03/24/19 23:59 11:59 23:59 Intake Total 1483.333 / 7843.501 1602.666 / 2484.666 240 / 2484.666 Output Total 655 / 655 315 / 315 Balance 828.333 / 145.306 2228.666 / 2169.666 240 / 2169.666 Intake: IV 993.333 / 6529.603 2969.666 / 1754.666 Oral 490 / 490 490 / 730 240 / 730 Output: Urine 255 / 255 315 / 315 Estimated Blood Loss 400 / 400 Other: Urine Color Dark Nancy Light Nancy Urine Appearance Cloudy Clear Urine Odor None Comment pt has voided since removal of montalvo; RN was informed by [facility] PN instructor that pt had voided but documentation by instructor was not done Emesis Description None Voiding Methods Indwelling Catheter Bedside Commode Laboratory Results WBC 8.85 k/cumm (4.4-10.8) 03/24/19 06:35 RBC 4.08 m/cumm (4.00-5.20) 03/24/19 06:35 Hgb 11.4 g/dL (12.0-15.5) L 03/24/19 06:35 Hct 35.8 % (36.0-46.0) L 03/24/19 06:35 MCV 87.7 fL (80-95) 03/24/19 06:35 MCH 27.9 pg (27.0-33.0) 03/24/19 06:35 MCHC 31.8 g/dL (32.0-36.0) L 03/24/19 06:35 RDW 14.9 % (11.7-14.6) H 03/24/19 06:35 Plt Count 245 x1000/uL (130-400) 03/24/19 06:35 MPV 10.6 fL (8.0-11.0) 03/24/19 06:35 Sodium 141 mmol/L (136-145) 03/24/19 06:35 Potassium 3.1 mmol/L (3.5-5.1) L 03/24/19 06:35 Chloride 105 mmol/L (98-107) 03/24/19 06:35 Carbon Dioxide 30.3 mmol/L (21.0-32.0) 03/24/19 06:35 Anion Gap 5.7 mmol/L (3-11) 03/24/19 06:35 BUN 22 mg/dL (7-18) H 03/24/19 06:35 Creatinine 0.81 mg/dL (0.55-1.02) 03/24/19 06:35 Estimated GFR/1.73 m2 >= 60.00 (mL/min/1.73m2) 03/24/19 06:35 Glucose 92 mg/dL (70-100) 03/24/19 06:35 Calcium 8.5 mg/dL (8.5-10.1) 03/24/19 06:35
--- NOTE | 2019-03-24 17:54 | PGE_ITS ---
Date of Service Date of service: 03/24/19 Time of Service: 07:51 Assessment and Plan (1) Left knee DJD: Current visit: Yes Status: Chronic Wanda is postop day #1 status post left knee replacement. She is having a good bit of pain. I have encouraged her to take pain medications. She is also reluctant to move the knee inferior having pain. Her preoperative range of motion was about 25-75. It is very possible that these tissues have been moved in such way that she is having significant pain from this. I also had removed a large amount of osteophytes from throughout the knee. This is going to cause trauma to the surrounding tissues. Nevertheless, it is imperative that we move. I have encouraged her that she is not can hurt anything and that pain can be managed. She will continue work physical therapy. We will continue rivaroxaban for anticoagulation with history of pulmonary embolism. Her hemoglobin did drop from acute blood loss anemia but it is stable and not in a range to consider transfusion. Her vital signs are stable. No signs of ulnar embolus. Continue with weightbearing as tolerated physical therapy. Continue with pain control. Qualifiers: Osteoarthritis type: primary Qualified Code(s): M17.12 - Unilateral primary osteoarthritis, left knee Subjective Interval history since last seen: Wanda is a status post left knee replacement. In general, she does feel fairly sore throughout the leg especially the anterior thigh. She has been reluctant to move the knee because it does cause pain. She has been reluctant to take pain medications but the last nurse has encouraged her to do so when she does find relief when she takes it. She was able to stand for a period of time and take a few steps. However, she is very reluctant to place all of her weight on it. She is very apprehensive and anxious about having pain. She denies any numbness or tingling. She denies any fevers or chills. She has had no shortness of breath, palpitations, chest pain, d ifficulty breathing. She has not had to have any oxygen applied. Her Montalvo catheter was removed early this morning and she has already voided. Exam Narrative Exam Narrative: Evaluate the left knee shows an Ray wrap in position. There is some swelling that is palpated throughout the knee. She is able to dorsiflex and plantar flex the foot. Sensation intact light touch over the deep and superficial peroneal nerves and tibial nerves. She is unable to straight leg raise. The knee is held in about 20 degrees of flexion. When I passively move the knee she does resist with reported pain. Objective Objective Clinical Data: Abnormal lab results 03/24/19 03/24/19 Range/Units 06:35 06:35 Hgb 11.4 L (12.0-15.5) g/dL Hct 35.8 L (36.0-46.0) % MCHC 31.8 L (32.0-36.0) g/dL RDW 14.9 H (11.7-14.6) % Potassium 3.1 L (3.5-5.1) mmol/L BUN 22 H (7-18) mg/dL Vital Signs Temperature 36.1 C L 03/24/19 15:44 Temperature Source Tympanic 03/24/19 15:44 Pulse 74 03/24/19 15:44 Pulse Rhythm Regular 03/24/19 11:59 Respiratory Rate 16 03/24/19 15:44 Respiratory Effort Non-Labored 03/24/19 11:59 Respiratory Depth Normal 03/24/19 11:59 Respiratory Pattern Normal 03/24/19 11:59 Blood Pressure 103/65 03/24/19 15:44 Pulse Oximetry 93 L 03/24/19 15:44 Respiratory End-tidal CO2 34 03/23/19 14:30 Oxygen Delivery Method Room Air 03/24/19 15:44 Oxygen Flow Rate 0 03/24/19 15:44 Pain Level 1 03/24/19 13:18 Intake & Output 03/23/19 03/24/19 03/24/19 23:59 11:59 23:59 Intake Total 1483.333 / 0413.914 8645.666 / 2484.666 240 / 2484.666 Output Total 655 / 655 315 / 315 Balance 828.333 / 634.890 5707.666 / 2169.666 240 / 2169.666 Intake: IV 993.333 / 1734.408 9658.666 / 1754.666 Oral 490 / 490 490 / 730 240 / 730 Output: Urine 255 / 255 315 / 315 Estimated Blood Loss 400 / 400 Other: Urine Color Dark Nancy Light Nancy Urine Appearance Cloudy Clear Urine Odor None Comment pt has voided since removal of montalvo; RN was informed by [facility] instructor that pt had voided but documentation by instructor was not done Emesis Description None Voiding Methods Indwelling Catheter Bedside Commode Laboratory Results WBC 8.85 k/cumm (4.4-10.8) 03/24/19 06:35 RBC 4.08 m/cumm (4.00-5.20) 03/24/19 06:35 Hgb 11.4 g/dL (12.0-15.5) L 03/24/19 06:35 Hct 35.8 % (36.0-46.0) L 03/24/19 06:35 MCV 87.7 fL (80-95) 03/24/19 06:35 MCH 27.9 pg (27.0-33.0) 03/24/19 06:35 MCHC 31.8 g/dL (32.0-36.0) L 03/24/19 06:35 RDW 14.9 % (11.7-14.6) H 03/24/19 06:35 Plt Count 245 x1000/uL (130-400) 03/24/19 06:35 MPV 10.6 fL (8.0-11.0) 03/24/19 06:35 Sodium 141 mmol/L (136-145) 03/24/19 06:35 Potassium 3.1 mmol/L (3.5-5.1) L 03/24/19 06:35 Chloride 105 mmol/L (98-107) 03/24/19 06:35 Carbon Dioxide 30.3 mmol/L (21.0-32.0) 03/24/19 06:35 Anion Gap 5.7 mmol/L (3-11) 03/24/19 06:35 BUN 22 mg/dL (7-18) H 03/24/19 06:35 Creatinine 0.81 mg/dL (0.55-1.02) 03/24/19 06:35 Estimated GFR/1.73 m2 >= 60.00 (mL/min/1.73m2) 03/24/19 06:35 Glucose 92 mg/dL (70-100) 03/24/19 06:35 Calcium 8.5 mg/dL (8.5-10.1) 03/24/19 06:35
[2019-03-24 19:45] VITALS: BP 120/76; PULSE 84; RESP 15; TEMP 37.1; O2SAT 97
[2019-03-24] MEDS: Simvastatin 40 MG TAB PO (22:19)
[2019-03-24] MEDS: Gabapentin 300 MG CAP PO (22:19)
[2019-03-25] MEDS: oxyCODONE 5 MG TAB PO ×3 (03:27→11:55)
[2019-03-25 03:36] VITALS: BP 139/81; PULSE 81; RESP 16; TEMP 36.5; O2SAT 92
[2019-03-25 07:33] VITALS: BP 131/80; PULSE 83; RESP 16; TEMP 36.8; O2SAT 92
[2019-03-25] MEDS: Celecoxib 100 MG CAP PO ×2 (08:08→19:56)
[2019-03-25] MEDS: Docusate Sodium 100 MG CAP PO (08:09)
[2019-03-25] MEDS: hydroCHLOROthiazide 25 MG TAB PO (08:09)
[2019-03-25] MEDS: Pantoprazole 40 MG TABCR PO (08:09)
[2019-03-25] MEDS: Acetaminophen 500 MG TAB 1000 MG PO ×2 (10:40→17:54)
[2019-03-25] MEDS: Rivaroxaban 10 MG TABLET PO (10:40)
[2019-03-25 10:50] VITALS: BP 122/76; PULSE 80; RESP 16; TEMP 35.9; O2SAT 97
--- NOTE | 2019-03-25 14:17 | DI.RAD_ITS ---
SYMPTOMS/DIAGNOSIS: PAIN AND LIMITED FLEXION S/P LEFT TOTAL KNEE ARTHROPLASTY LEFT KNEE: Two views were obtained and show total knee joint replacement in position. Components appear well seated. No other bony abnormality seen.
--- NOTE | 2019-03-25 14:33 | PGE_ITS ---
Date of Service Date of service: 03/25/19 Time of Service: 14:30 Assessment and Plan (1) Left knee DJD: Current visit: Yes Status: Chronic Wanda is post a day #2 from a left knee replacement. Unfortunately, she is really struggling with this left side more than the right side. He is extremely anxious about moving at all. Prior to leaving the operating room the knee is tested to note good flexion and extension. I do not have a good explanation why she is not wanting to flex the knee except for pain inhibition. I have advised her to take pain medications as I do not think were treating it fully. She does have some quad inhibition which is likely due to the trauma of the knee surgery and possibly due to the para-articular injection. I did ask for an x-ray given her limitations of motions which did not show any significant abnormalities. I have encouraged her to work diligently physical therapy. I will get a knee immobilizer for her use when she mobilizes for added confidence and support. We will continue to treat pain aggressively. Continue rivaroxaban 10 mg daily. Hopeful discharge home tomorrow. Qualifiers: Osteoarthritis type: primary Qualified Code(s): M17.12 - Unilateral primary osteoarthritis, left knee Subjective Interval history since last seen: Wanda continues to report significant pain. She has been unable to flex the knee past about 30 or 40 degrees. She also is concerned about being unable to lift the leg. Her pain is primarily anterolaterally. She also has pain posteriorly. She has taken a few pain pills but she is nervous about taking those as well. She has been able to ambulate with physical therapy no more than about 50 feet. She denies any gross instability. She has been able to void. She denies chest pain, shortness of breath, palpitations. Exam Narrative Exam Narrative: Wanda is examined in the bed. She is lying with her leg in about 5 degrees of extension. She is unable to straight leg raise. She does take some coercion but she is able to start portillo the quad causing extension of the knee but not able to lift the foot off the bed. There is no defect palpated. There is significant swelling about the knee. There is exquisite pain over the lateral aspect of the patella. She is reluctant to flex the knee at all. Passively I can flex her to about 45 or so degrees she resists the entire time. She notes significant pain. She has active dorsiflexion and plantarflexion against resistance. Sensation intact light touch over the deep and superficial peroneal nerve and tibial nerve. The foot is warm well perfused with a palpable DP and PT pulse. Objective Objective Clinical Data: Vital Signs Temperature 35.9 C L 03/25/19 10:50 Temperature Source Tympanic 03/25/19 10:50 Pulse 80 03/25/19 10:50 Pulse Rhythm Regular 03/25/19 07:40 Respiratory Rate 16 03/25/19 10:50 Respiratory Effort Non-Labored 03/25/19 07:40 Respiratory Depth Normal 03/25/19 07:40 Respiratory Pattern Normal 03/25/19 07:40 Blood Pressure 122/76 03/25/19 10:50 Pulse Oximetry 97 03/25/19 10:50 Respiratory End-tidal CO2 34 03/23/19 14:30 Oxygen Delivery Method Room Air 03/25/19 10:50 Oxygen Flow Rate 0 03/25/19 10:50 Pain Level 2 03/25/19 11:55 Intake & Output 03/24/19 03/25/19 03/25/19 23:59 11:59 23:59 Intake Total 480 / 2724.666 670 / 670 Output Total 550 / 865 350 / 350 Balance -70 / 1859.666 320 / 320 Intake: IV 100 / 100 Oral 480 / 970 570 / 570 Output: Urine 550 / 865 350 / 350 Other: Urine Color Yellow Light Nancy Urine Appearance Clear Clear Urine Odor None None Comment pt has voided since removal of montalvo; RN was informed by [facility] PN instructor that pt had voided but documentation by instructor was not done Voiding Methods Bedside Commode Bedside Commode Laboratory Results WBC 8.85 k/cumm (4.4-10.8) 03/24/19 06:35 RBC 4.08 m/cumm (4.00-5.20) 03/24/19 06:35 Hgb 11.4 g/dL (12.0-15.5) L 03/24/19 06:35 Hct 35.8 % (36.0-46.0) L 03/24/19 06:35 MCV 87.7 fL (80-95) 03/24/19 06:35 MCH 27.9 pg (27.0-33.0) 03/24/19 06:35 MCHC 31.8 g/dL (32.0-36.0) L 03/24/19 06:35 RDW 14.9 % (11.7-14.6) H 03/24/19 06:35 Plt Count 245 x1000/uL (130-400) 03/24/19 06:35 MPV 10.6 fL (8.0-11.0) 03/24/19 06:35 Sodium 141 mmol/L (136-145) 03/24/19 06:35 Potassium 3.1 mmol/L (3.5-5.1) L 03/24/19 06:35 Chloride 105 mmol/L (98-107) 03/24/19 06:35 Carbon Dioxide 30.3 mmol/L (21.0-32.0) 03/24/19 06:35 Anion Gap 5.7 mmol/L (3-11) 03/24/19 06:35 BUN 22 mg/dL (7-18) H 03/24/19 06:35 Creatinine 0.81 mg/dL (0.55-1.02) 03/24/19 06:35 Estimated GFR/1.73 m2 >= 60.00 (mL/min/1.73m2) 03/24/19 06:35 Glucose 92 mg/dL (70-100) 03/24/19 06:35 Calcium 8.5 mg/dL (8.5-10.1) 03/24/19 06:35
--- NOTE | 2019-03-25 14:51 | PHARADMIT ---
Admission Pharmacy Clinical Review LEFT KNEE DJD Code Status Full Code Current Weight WgT-116.2 kg Renally Cleared and Narrow Therapeutic Index Meds CrCl~ 50.8 mL/min Meds-OK QTc Value / Action Taken NONE BP Control, Fever BP- 122/76 Tmax-37.1C Electrolytes reviewed Na- 141 K+3.1 DVT Prophylaxis Xarelto Opiate Usage / Scheduled Bowel Regimen Ordered Yes Yes Plt/SCr for Heparin / Enoxaparin Plts-245 SCr-0.81 INR for Warfarin na H/H stable, WBC/Bands H&H- 11.4/35..8 WBC-8.85 Antibiotic appropriateness Ancef Cultures and Sensitivities None Surgical ABX d/c within 24 hr Yes DM control / Insulin Dosing BG-92 Heart Failure (Check EF%) (FREDY's, B-Block, Diuretics) HCTZ IV to PO Switch No Home Meds Reviewed Yes Home Meds Not Ordered Ordrered Comments
--- NOTE | 2019-03-25 15:22 | PT.INTREAT ---
Date of service: 03/25/19 Time of Service: 15:22 PT Notes Inpatient Physical Therapy Treatment Note [facility] Date: 03/24/19 PRECAUTIONS: Fall, WBAT on L SUBJECTIVE: Wanda reports that she continues to feel anxious regarding bearing weight through her L LE. In p.m., she reports feeling much more secure when using the knee immobilizer with gait training. OBJECTIVE: PAIN: Patient c/o pain in L knee with transfers, ther ex, and knee flexion BED MOBILITY/TRANSFERS Sit-stand: SBA in a.m.; S in p.m. Stand-sit: SBA in a.m.; S in p.m. GAIT Assistive Device: FWW Weight bearing: WBAT L Assist: SBA-S in a.m.; S in p.m. Distance: 40' in a.m.; 120' in p.m. Deviation: Step-to gait pattern, slow sade; knee immobilizer in p.m. Static standing x5 minutes with SBA THEREX: Patient completed a LE strengthening and stabilization program, as per flow sheet. She requires assist for SLR and heel slides exercises. She ends with cryocuff to L knee. ASSESSMENT: Patient tolerated session with c/o L knee discomfort with knee flexion, as well as anxiety regarding weight bearing on her L LE. Patient was able to tolerate a progression in gait distance with FWW and knee immobilizer support and supervision, demonstrating an increased sade and step-through gait pattern. Patient would benefit from continued gait and transfer training, as well as strengthening for improved mobility and ability to perform daily functional tasks at a more independent level. PLAN: Continue with PT's POC TREATMENT CODE/TIME: Session 1: 30 minutes; 04391, [id number] Session 2: 30 minutes; 40404, [id number]
[2019-03-25 15:50] VITALS: BP 119/66; PULSE 79; RESP 14; TEMP 36.7; O2SAT 96
[2019-03-25 19:45] VITALS: BP 120/75; PULSE 87; RESP 16; TEMP 37.5; O2SAT 95
--- NOTE | 2019-03-25 20:41 | CMPROGNOTE_ITS ---
Care Management Progress Note S/O: Camryn remains pleasant in interaction and continues to work with PT and be closely monitored for pain management. She continues to progress and will likely discharge tomorrow per MD. CM continues to follow. A: 69 year old female admitted to [facility] 03/23/19 for Left Knee DJD P: Marsha will return home when ready per MD. She will follow up with Dr. Ly and her plan of care as prescribed including activity restrictions and medication recommendations. She has all DME needed for discharge. Marsha will transport home via private vehicle with her significant other; David.
[2019-03-25] MEDS: Gabapentin 300 MG CAP PO (21:40)
[2019-03-25] MEDS: Simvastatin 40 MG TAB PO (21:40)
[2019-03-25 23:37] VITALS: BP 122/71; PULSE 80; RESP 17; TEMP 36.6; O2SAT 94
[2019-03-26] MEDS: Acetaminophen 500 MG TAB 1000 MG PO ×2 (02:38→09:52)
[2019-03-26 03:40] VITALS: BP 121/71; PULSE 83; RESP 16; TEMP 36.9; O2SAT 97
[2019-03-26 07:20] VITALS: BP 128/77; PULSE 84; RESP 20; TEMP 36.8; O2SAT 96
[2019-03-26] MEDS: Pantoprazole 40 MG TABCR PO (07:34)
[2019-03-26] MEDS: oxyCODONE 5 MG TAB PO ×2 (07:40→14:37)
[2019-03-26] MEDS: Celecoxib 100 MG CAP PO (07:40)
[2019-03-26] MEDS: hydroCHLOROthiazide 25 MG TAB PO (07:40)
[2019-03-26] MEDS: Rivaroxaban 10 MG TABLET PO (07:40)
[2019-03-26] MEDS: Docusate Sodium 100 MG CAP PO (07:40)
[2019-03-26 12:00] VITALS: BP 106/58; PULSE 79; RESP 20; TEMP 36.3; O2SAT 98
--- NOTE | 2019-03-26 13:01 | DSE_ITS ---
Date of service: 03/26/19 Time of Service: 13:01 DS: Diagnosis Discharge Diagnosis (1) Left knee DJD: Status: Chronic Discharge Plan Disposition Patient Disposition: HOME Condition: Good Discharge Details Reason For Visit: LEFT KNEE DJD Admit Date/Time: 03/23/19 08:24 Admit Provider: Rk Ly Attending Provider: Rk Ly Primary Care Provider: Luna Freire Hospital Course Hospital Course: Patient was admitted to the medical/surgical floor following the procedure. It was tolerated well without any notable medical, surgical, or anesthetic complications. Mobilization began postoperatively. Wanda did have some difficulty with straight leg raise and was noted to have some quad weakness. She also was reluctant to flex the knee in a postoperative x-ray was performed which did not show any significant abnormalities. Her physical therapy was advanced. Prolonged ambulation was assisted with a knee immobilizer. The montalvo catheter was removed and voiding spontaneously. Vitals were stable. Physical therapy worked with the patient and was cleared for discharge home. No acute medical issues. Home Meds and New Rx's Prescriptions: New Xarelto 10 mg Tablet 10 mg PO DAILY Qty: 14 RF: 0 acetaminophen 500 mg tablet 1,000 mg PO Q8H PRN (Reason: pain) Qty: 90 RF: 3 oxycodone 5 mg tablet 5 mg PO Q4H Qty: 10 RF: 0 celecoxib 100 mg capsule 100 mg PO BID Qty: 60 RF: 0 Continued hydrochlorothiazide 25 MG tablet 25 mg PO DAILY RF: 0 simvastatin 40 MG tablet 40 mg PO HS RF: 0 Discharge Instructions Additional Instructions: Dr. Ly?s Total Knee Discharge Instructions Activity: The most important activity is to walk. You should try to take short walks a few times a day. It is important that when resting you work on keeping the knee straight. Avoid putting a pillow behind the knee as this will encourage flexion. Work on range of motion exercises as provided by Physical Therapy. You may use the knee immobilizer for support for longer walks. - Start outpatient physical therapy within 2 weeks. - You should wear the MARLENE hose on both legs for 4 weeks. Dressing: Keep the surgical dressing in place for at least one week. After the first week it may be removed and replace with light gauze and tape or nothing. It may get wet after 3 days but avoid soaking the dressing. If it gets wet, just lightly pat dry. Medications: - You should take Tylenol and anti-inflammatory (Celebrex) as your primary pain control medications - You have been prescribed a stronger pain medication (Oxycodone) for br eakthrough pain, take as needed as prescribed. - You will be taking Rivaroxaban 10mg once a day for DVT prevention for 2 weeks, and then take a baby Aspirin (81mg). - If you have constipation you should take Colace or Miralax (both [id number]). It takes most people 3-4 days to have a bowel movement. Follow-up: 2 weeks Stand Alone Forms: Nursing Discharge Form Referrals: Rk Ly MD [ [facility] STAFF PHYSICIAN] - Activity:: Activity as Tolerated Equipment/Supplies:: No Equipment Needed Diet:: As Tolerated Discharge Orders Discharge Orders: Discharge Order (Routine); Ordered 03/26/19 Ordered By: Rk Ly DS: Data Vitals/I&O Vitals and I&O: Vital Signs Temperature 36.3 C L 03/26/19 12:00 Temperature Source Tympanic 03/26/19 12:00 Pulse 79 03/26/19 12:00 Pulse Rhythm Regular 03/26/19 03:40 Respiratory Rate 20 03/26/19 12:00 Respiratory Effort 03/26/19 03:40 Respiratory Depth Normal 03/26/19 03:40 Respiratory Pattern Normal 03/26/19 03:40 Blood Pressure 106/58 L 03/26/19 12:00 Pulse Oximetry 98 03/26/19 12:00 Respiratory End-tidal CO2 34 03/23/19 14:30 Oxygen Delivery Method Room Air 03/26/19 12:00 Oxygen Flow Rate 0 03/26/19 12:00 Pain Level 1 03/26/19 12:00 Intake & Output 03/25/19 03/26/19 03/26/19 23:59 11:59 23:59 Intake Total 640 / 1310 490 / 490 Output Total 300 / 300 Balance 640 / 610 190 / 190 Intake: Oral 640 / 1210 490 / 490 Output: Urine 300 / 300 Other: Urine Color Yellow Yellow Urine Appearance Clear Clear Urine Odor Normal Comment Urine not seen, patient flushed toilet Voiding Methods Toilet [facility] Medical History Hyperlipidemia (Chronic) Hypertension (Chronic) Left knee DJD (Chronic) History of pulmonary embolism (Chronic) Surgical History Status post tonsillectomy and adenoidectomy (Chronic) History of carpal tunnel release (Chronic) Status post total right knee replacement (Chronic) Colonoscopy - IV Sedation (06/25/16) Family History Mother No problems noted. Father Stroke Hypertension Social History Smoking/Tobacco Use Status: Never Drug use: Never
--- NOTE | 2019-03-26 15:11 | PDOC.CMDIS ---
LACE Index Scoring Tool - Questions: Length of Stay (in days): 3 Acuity (Admit via E.D.?): No E.D. Visits: 0 - Answers: Total Score: 3 Risk of Readmission: Low Risk Care Management Discharge Reason for Hospitalization: (L) Knee DJD Discharge Plan: Marsha will return home when ready per MD. She will follow up with Dr. Ly and her plan of care as prescribed including activity restrictions and medication recommendations. She has all DME needed for discharge. Marsha will transport home via private vehicle with her significant other; David. Patient/Family Education Needs: Review of discharge instructions, discuss Ask Me Three.
--- NOTE | 2019-03-29 12:21 | PT.INDS ---
Date of service: 03/26/19 Time of Service: 10:18 PT Notes Inpatient Physical Therapy Discharge Summary Dates: 03/26/2019 Dates of Service: 03/24/2019 through 03/26/2019 Referring Doctor: Rk Ly MD PT Orders: PT CONSULT: Status post left TKA Precautions: Fall. Standard. WBAT on L LE. Patient Profile/Admitting Diagnosis: Patient is a 69-year-old female referred to physical therapy services with the diagnosis of left knee DJD status post left total knee athropplasty on POD 3. PMHX: Medical History Hyperlipidemia (Chronic) Hypertension (Chronic) Left knee DJD (Chronic) History of pulmonary embolism (Chronic) Surgical History Status post tonsillectomy and adenoidectomy (Chronic) History of carpal tunnel release (Chronic) Status post total right knee replacement (Chronic) Colonoscopy - IV Sedation (06/25/16) Social History/Home Situation: Patient lives alone in a 1 floor house with a ramp to enter through the kitchen, rails on B sides. She was independent with all aspects of ADLs without the need for use of an AD nor adaptive equipment. Current Functional Limitations: Need for assistance in performing bed mobility using bedrail, transfers, and ambulation using FWW Equipment Owned/DME: Standard walker, [place] Subjective: Patient pleasant and cooperative. Reports that she had a better night last night. She is agreeable to performing gait activity with this PT using her knee immobilizer. Objective: General Observation: Patient seen seated on chair. IV in L UE out. FREDY wraps on L LE off. Arora catheter removed. Anti DVT pump on R leg off. Mental Status: Alert and oriented x3 Pain: 1/10 at rest, 3/10 with weightbearing ROM: Right Upper Extremity: Shoulder Flexion WFL. Shoulder abduction WFL. Elbow flexion WFL. Wrist flexion WFL. Functional opening and closing of hand WFL. Left Upper Extremity: Shoulder Flexion WFL. Shoulder abduction WFL. Elbow flexion WFL. Wrist flexion WFL. Functional opening and closing of hand WFL. Right Lower Extremity: Hip flexion WFL. Hip abduction WFL. Knee flexion WFL. Ankle dorsiflexion WFL. Ankle plantarflexion WFL. Left Lower Extremity: Hip flexion 0-100 range limited by abdominal panniculus. Hip abduction 0-20. Knee flexion 0 to 95 degree while seated with AAROM with minimal discomfort at end range. Patient able to assume full knee extension actively. Ankle dorsiflexion WFL. Ankle plantarflexion WFL. Strength: Right Upper Extremity: Shoulder flexors 5/5. Shoulder abductors 5/5. Elbow flexors 5/5. Elbow extensors 5/5. Receptionist Clerk strong. Left Upper Extremity: Shoulder flexors 5/5. Shoulder abductors 5/5. Elbow flexors 5/5. Elbow extensors 5/5. Receptionist Clerk strong. Right Lower Extremity: Hip flexors 5/5. Hip abductors 5/5. Knee flexors 5/5. Knee extensors 5/5. Ankle dorsiflexors 5/5. Ankle plantarflexors 5/5. Left Lower Extremity:Hip flexors 3-/5. Hip abductors 3-/5. Knee flexors 3-/5. Knee extensors 4-/5. Ankle dorsiflexors 4+/5. Ankle plantarflexors 4+/5. Sensation: Intact chest pain and pressure on B LE Bed Mobility/Transfers: Rolling I Supine to sit I Sit to supine I Sit to stand S Stand to sit S Bed to chair S Chair to bed S Gait: Patient was able to tolerate in room ambulation with S for 150 feet +25 feet +25 feet with knee immobilizer on left LE with one standing rest needed using step-to gait pattern. Patient demonstrates improved confidence with gait performance today. Balance: Static Sitting: Good Dynamic Sitting: Good Static Standing: Fair Dynamic Standing: Fair Special Tests: Mobility Limitations Standardized Measure [facility] AM-PAC 6 clicks Basic Mobility Inpatient Short Form: Raw Score: 22 CMS Score: 21% deficit Assessment: Patient is a 69 year old female referred to physical therapy services with the diagnosis of left knee DJD status post left total knee athropplasty. Patient presents with clinical signs and symptoms consistent with current/admitting diagnoses that have resulted to mobility limitations, gait instability, generalized weakness, and impairment of motor control as demonstrated by the following impairment level findings: 1. Decreased strength Madi LE major muscle groups 2. Impaired sitting/standing balance 3. Impaired activity tolerance 4. Limitation of joint range of motion in left hip Impairments are contributing to the following functional limitations: 1. Dependent bed mobility skills 2. Increased dependence with transfers 3. Inability to safely ambulate without assistive device and physical assistance 4. Increase completion time for mobility ADL performance 5. Increased fall risk 6. Inability to negotiate steps alone safely Goals: Goals X1 week 1. Supine-Sit independent MET 2. Sit-Supine independent MET 3. Sit-Stand independent NOT MET 4. Stand-Sit independent NOT MET 5. Bed-Chair independent NOT MET 6. Chair-Bed independent NOT MET 7. Independent gait on level surface with use of least restrictive device for at least 300 feet without report of pain nor dyspnea NOT MET 8. Independent stair negotiation while holding onto bilateral rails for at least 5 steps without report of pain nor dyspnea NOT MET 9. Independent with home exercise program NOT MET 10. Good static and dynamic standing balance/tolerance NOT MET DISCHARGE RECOMMENDATIONS: Patient will benefit from PT services to maximize functional mobility level, progress assistive ambulatory device use, assess home safety, establish/implement a functional maintenance program for fall reducetion nad progressive strengthening. TREATMENT CODE/TIME: 31350 x 1 for 36 minutes beginning at 10:18 am. Thank you for this referral. Lynne Rico, PT, DPT, CLT [facility]
== END 2019-03-26 15:13 | disposition home or self-care (01) | DRG 470 ==
LOC: PDS 10:02 → MS 03-24 05:20
PROVIDERS: Admitting Provider Student in an Organized Health Care Education/Training Program; PCP Family Medicine; Visit Provider Student in an Organized Health Care Education/Training Program
PROC: 0SRD0J9 Replacement of Left Knee Joint with Synthetic Substitute, Cemented, Open Approach (ICD-10-PCS; CPT 27447; principal; 2019-03-23 10:30)
DX: M17.12 Unilateral primary osteoarthritis, left knee (principal); M96.89 Other intraoperative and postprocedural complications and disorders of the musculoskeletal system; M21.162 Varus deformity, not elsewhere classified, left knee; Z96.652 Presence of left artificial knee joint; I10 Essential (primary) hypertension; E78.5 Hyperlipidemia, unspecified; G89.18 Other acute postprocedural pain
CPT/HCPCS: 27447; 20985; 36415; 76942; 80048; 85027; 97110; 97162; 97530; NC; 73560; J0690; J1885; J2250; J2405; L1830

== ENCOUNTER 2019-04-05 11:07 | Outpatient (CLI) | payer OTHER, SELFPAY ==
--- NOTE | 2019-04-05 11:01 | DI.RAD_ITS ---
SYMPTOM/DIAGNOSIS: F/U TKA LEFT KNEE: Comparison is made with 03/25/19. There has been no change in the left total knee prosthesis. No abnormal bony lucencies are seen. BILATERAL LOWER EXTREMITIES: Standing AP views were performed from the upper pelvis through the ankles. There are bilateral total knee prostheses. The hip joint spaces are well maintained. There is no significant leg length discrepancy at the level of the femoral heads. There are mild degenerative changes of both ankles. IMPRESSION: Bilateral knee prostheses. No significant leg length discrepancy.
== END 2019-04-05 11:27 ==
PROVIDERS: PCP Family Medicine; Referring Provider Family Medicine; Visit Provider Student in an Organized Health Care Education/Training Program
DX: M17.12 Unilateral primary osteoarthritis, left knee (principal); Z96.653 Presence of artificial knee joint, bilateral; Z47.1 Aftercare following joint replacement surgery; I10 Essential (primary) hypertension
CPT/HCPCS: 73560; 77073

== ENCOUNTER → 2019-05-03 09:58 | Outpatient (BNVA) | payer OTHER, SELFPAY | PROVIDERS: PCP Family Medicine; Referring Provider Family Medicine; Visit Provider Student in an Organized Health Care Education/Training Program | DX: Z47.1 Aftercare following joint replacement surgery; M17.12 Unilateral primary osteoarthritis, left knee ==

== ENCOUNTER → 2019-06-14 08:56 | Outpatient (BNVA) | payer OTHER, SELFPAY | PROVIDERS: PCP Family Medicine; Referring Provider Family Medicine; Visit Provider Student in an Organized Health Care Education/Training Program | DX: Z47.1 Aftercare following joint replacement surgery (principal); Z96.652 Presence of left artificial knee joint ==

== ENCOUNTER 2019-08-04 00:56 | Outpatient (CLI) | payer OTHER, SELFPAY ==
--- NOTE | 2019-08-04 12:45 | DI.MAMMO_ITS ---
EXAM: MG MAMMO SCREENING CLINICAL HISTORY: SCREENING Z12.31. TECHNIQUE: Bilateral full field digital CC and MLO mammographic images were obtained with 3D tomosyn thesis and utilizing computer aided detection (CAD). COMPARISON: With previous examinations including May,. FINDINGS: The breasts are of moderate density with fairly symmetrical distribution of fibroglandular tissue. N o dominant mass or clumped microcalcification is identified in either breast. The current examinatio n is compared with previous examinations including May 2018 and there has been no gross interval handy nge in appearance in comparison with the previous studies. IMPRESSION: No specific evidence of malignancy at this time. Routine screening examinations are suggested at year ly intervals due to the family history of breast carcinoma. Category 1. Breast density, category B. BI-RADS Cat 1 - Negative Breast Density - Category B - Scattered areas of fibroglandular density.
== END 2019-08-04 01:16 ==
PROVIDERS: PCP Family Medicine; Visit Provider Family Medicine
DX: Z12.31 Encounter for screening mammogram for malignant neoplasm of breast (principal)
CPT/HCPCS: 77063; 77067

== ENCOUNTER 2020-04-03 10:51 | Outpatient (CLI) | payer OTHER, SELFPAY ==
--- NOTE | 2020-04-03 08:45 | DI.RAD_ITS ---
EXAM: XR KNEE LT 2V AP,LAT CLINICAL HISTORY: ANNUAL F/U L TKA. TECHNIQUE: 2D digital imaging was performed. COMPARISON: CR XR knee LT 2V AP,lat from 03/25/2019 FINDINGS: BONES: Stable postsurgical changes of a left total knee replacement. No evidence of hardware loosen ing. No acute fracture or dislocation. JOINTS: The knee is normally aligned. No joint effusion is seen. SOFT TISSUE: Normal. IMPRESSION: Stable left TKR. DATA REPOSITORY: RADIATION DOSE DELIVERED:
== END 2020-04-03 11:11 ==
PROVIDERS: PCP Family Medicine; Referring Provider Family Medicine; Visit Provider Student in an Organized Health Care Education/Training Program
DX: Z96.652 Presence of left artificial knee joint (principal); Z47.1 Aftercare following joint replacement surgery; I10 Essential (primary) hypertension
CPT/HCPCS: 99213; 73560

== ENCOUNTER 2020-07-17 09:01 | Outpatient (REF) | payer OTHER, SELFPAY ==
[2020-07-17 20:53] LABS: HCT 45.5 % (36.0-46.0); HGB 15.1 g/dL (11.2-15.7); MCH 28.4 pg (27.0-33.0); MCHC 33.2 % (32.0-36.0); MCV 85.7 fL (80-95); MPV 11.6 fL (8.0-11.0); Platelet Count 201 10^3/uL (130-400); RBC 5.31 10^6/uL (3.93-5.22); RDW-SD 46.8 fL; WBC 7.55 10^3/uL (4.4-10.8)
[2020-07-17 21:34] LABS: ALT 28 U/L (14-59); AST 17 U/L (15-37); Albumin 3.7 g/dL (3.4-5.0); Alkaline Phosphatase 79 U/L (46-116); Anion Gap 7.3 mmol/L (3-11); BUN 16 mg/dL (7-18); Bilirubin, Total 0.7 mg/dL (0.2-1.0); CO2 29.7 mmol/L (21.0-32.0); CREATININE 0.77 mg/dL (0.55-1.02); Calcium 9.6 mg/dL (8.5-10.1); Calculated LDL 92 mg/dL (<100); Chloride 105 mmol/L (98-107); Cholesterol 163 mg/dL (<200); Glucose 94 mg/dL (74-106); HDL Cholesterol 41 mg/dL (40-60); Potassium 4.3 mmol/L (3.5-5.1); Sodium 142 mmol/L (136-145); Total Protein 7.3 g/dL (6.4-8.2); Triglyceride 153 mg/dL (<150)
== END 2020-07-17 09:21 ==
LOC: NCHCN 09:01
PROVIDERS: PCP Family Medicine; Visit Provider Family Medicine
DX: I10 Essential (primary) hypertension (principal); E78.5 Hyperlipidemia, unspecified
CPT/HCPCS: 80053; 80061; 85027

== ENCOUNTER 2020-08-16 10:12 | Outpatient (CLI) | payer OTHER, SELFPAY ==
--- NOTE | 2020-08-16 09:01 | DI.MAMMO_ITS ---
EXAM: MAMMO SCREENING CLINICAL HISTORY: SCREENING,Z12.31 TECHNIQUE: Mammograms were interpreted according to the usual protocol including computer analysis w [employer] CAD system, tomosynthesis and C-view imaging. COMPARISON: 2011 through 2018 FINDINGS: The breasts are composed of scattered fibroglandular densities, Breast Density category B. No suspicious masses or suspicious microcalcifications are seen. No skin thickening or abnormal axillary lymph nodes are seen. There has been no significant change from prior exams. IMPRESSION: BI-RADS Category 1, Negative mammogram Yearly screening mammography is recommended. Breast Density - Category B, scattered fibroglandular densities. A negative radiographic report should not delay biopsy if a dominant or clinically suspicious mass is present. Up to ten percent of cancers are not identified on mammography. A negative report may reinforce clinical impression. Adenosis and dense breasts may obscure an underlying neoplasm. False positive reports average 6 to 10%. Patient will receive a letter notifying them of these results.
== END 2020-08-16 10:32 ==
PROVIDERS: PCP Family Medicine; Visit Provider Family Medicine
DX: Z12.31 Encounter for screening mammogram for malignant neoplasm of breast (principal)
CPT/HCPCS: 77063; 77067

== ENCOUNTER → 2021-05-03 07:49 | Outpatient (BNVA) | payer OTHER, SELFPAY | PROVIDERS: PCP Family Medicine; Referring Provider Family Medicine; Visit Provider Physical Therapy Assistant | DX: Z12.11 Encounter for screening for malignant neoplasm of colon (principal); Z86.010 Personal history of colon polyps ==

== ENCOUNTER 2021-05-18 09:38 | Day surgery (SDC) | payer OTHER, SELFPAY ==
[2021-05-18 10:00] VITALS: BP 146/87; PULSE 71; RESP 18; TEMP 36.2; O2SAT 97
[2021-05-18] MEDS: Lactated Ringers 1,000 ML 80 ML IV (10:29)
--- NOTE | 2021-05-18 10:39 | W.ANESPRE ---
General Info Date of Service Date Performed: 05/18/21 Height: 5 ft 1.5 in Weight: 116.7 kg Body Mass Index (BMI): 47.8 Surgical Procedure: Operation Date: 05/18/21 10:20 Proposed Procedures Side Surgeon svetlana Mcdonald, DO Meds Allergies and Home Medications Allergies Allergy/AdvReac Type Severity Reaction Status Date / Time No Known Allergies Allergy Unverified 05/18/21 10:06 Home Medication Medication Instructions Recorded hydrochlorothiazide 25 mg PO DAILY tab-cap 04/25/16 simvastatin 40 mg PO HS tab-cap 04/29/16 nystatin 100,000 unit/gram topical 1 applic TOPICAL BID 02/07/21 powder bisacodyl 5 mg tablet,delayed 5 mg PO ONCE #4 tab 05/03/21 release polyethylene glycol 3350 17 238 g PO ONCE #238 g 05/03/21 gram/dose oral powder Current Visit Medications: Current Medications Generic Name Dose Route Start Last Admin Trade Name Freq PRN Reason Stop Dose Admin Hyoscyamine Sulfate 0.125 mg 05/17/21 23:47 Hyoscyamine 0.125 Mg Sl/Oral/Chew SL DIRECTED PRN Ringer's Solution 1,000 mls @ 80 mls/hr 05/18/21 06:00 05/18/21 10:29 IV 06/16/21 23:59 80 mls/hr INFUSION ROBERT Administration IV Miscellaneous Supplies 1 each 05/18/21 06:00 Iv Access IV 06/16/21 23:59 DIRECTED ROBERT Ondansetron HCl 4 mg 05/17/21 23:47 Ondansetron 4 Mg/2 Ml Vial IVP Q4H PRN PRN Nausea / Vomiting Sodium Chloride 0 ml 05/18/21 06:00 Normal Saline Flush 10 Ml Syr IV 06/16/21 23:59 PRN PRN Sodium Chloride 0 ml 05/18/21 06:00 Normal Saline 10 Ml Vial IJ 06/16/21 23:59 DIRECTED PRN Sterile Water 0 ml 05/18/21 06:00 Water,Injection,Sterile 10 Ml Vial IJ 06/16/21 23:59 DIRECTED PRN PFSH Active Problems Active Problems: Problem Status Onset Code Status post total left knee replacement 03/25/19 Z96.652 Status post tonsillectomy and adenoidectomy Z90.89 History of carpal tunnel release Z98.890 Hyperlipidemia E78.5 Hypertension I10 History of pulmonary embolism Z86.711 Status post total right knee replacement 03/24/18 Z96.651 Medical History Medical History History of pulmonary embolism Following R TKA 03/26/18 Hyperlipidemia Hypertension 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 Ly Tobacco Smoking/Tobacco Use Status: Never Alcohol Alcohol Intake: never Substance Use Substance use: Never Substance use type: does not use Vital Signs and Lab Results Vital Signs Most Recent Vital Signs in EMR: Most Recent Vital Signs Temp Pulse Resp BP Pulse Ox 36.2 C L 71 18 146/87 H 97 05/18/21 10:00 05/18/21 10:00 05/18/21 10:00 05/18/21 10:00 05/18/21 10:00 Lab Results Blood Type / Crossmatch: No Data to Display Complete Blood Count: No Data to Display Complete Metabolic Panel: No Data to Display Liver Function Panel: No Data to Display Coagulation Panel: No Data to Display Cardiac Panel: No Data to Display Arterial Blood Gas: No Data to Display Venous Blood Gas: No Data to Display Pancreas Panel: No Data to Display Thyroid Panel: No Data to Display Infectious Disease: No Data to Display Blood Cultures: No Data to Display Toxicology Panel: No Data to Display Anesthesia Assessment and Plan Anesthesia History Personal History: No History of Anesthesia Complications and Other (PE after first TKA unidentified etiology) Family History: No Family History of Anesthesia Complications Exercise Tolerance Exercise Tolerance: Metabolic Equivalents>4 Pertinent Negatives Pertinent Negatives: No Symptoms of GERD, No Major Cardiovascular Symptoms or Complaints, No Major Pulmonary Symptoms or Complaints and No History of CVA/TIA Cardiac & Pulmonary Exam Cardiac Exam: Normal S1/S2 Heart Sounds Pulmonary Exam: Clear Bilateral Breath Sounds Airway Exam Known Difficult Airway: No Mallampati Class: 1 Mouth Opening: Normal (> 3cm) Thyromental Distance: Greater than 3 cm Neck Range of Motion: Full ROM Neck Circumference: Thick Teeth Condition: Normal Dentition (3 Crowns in back) ASA Classification ASA Score: ASA 1 Emergency Case?: No NPO Status NPO Status: NPO Clears >2 hours, Solids >8 hours Anesthesia Plan Resuscitation Status: Full Code Anesthesia Technique: General Anesthesia Airway Planned: Natural Airway Monitors Used: Standard Monitors
[2021-05-18 10:41] VITALS: BMI 47.8
--- NOTE | 2021-05-18 11:30 | BOWEL_PTH ---
PATIENT: Marsha Jerry LOC: [facility] U#:[id number] AGE/SX: 71/F ROOM: RE05/18/[address]: Perri Mcdonald : 1950 BED: DIS: 05/18/2021 SPEC #: [id number] RECD: 05/18/21 13:12 STATUS: ALBERT RE #: [id number] CALVIN: 05/18/21 11:[address]: Perri Mcdonald DEPT: Surgical Specimen RECD BY: Celia Gatica ENTERED: 05/18/21 13:14 SP TYPE: Bowel OTHR DR: Luna Freire Tissues: 1 - BIOPSY BOWEL 2 - BIOPSY BOWEL Procedures: GROSS AND MICRO LEVEL 4 Comments: [id number]
[2021-05-18 12:00] VITALS: BP 134/86; PULSE 79; RESP 16; TEMP 36.5; O2SAT 92
--- NOTE | 2021-05-18 12:05 | W.COLOREPORT ---
Date of service: 05/18/21 Time of Service: 12:05 Colonoscopy Report Date of procedure: 05/18/21 Pre-op diagnosis general: S. adenomas Post-op diagnosis procedure note: other Surgeon: Perri Mcdonald Anesthesia Type: General:No Airway Estimated blood loss (mL): 1 Pathology: other Complications: None Disposition: same day Retraction Time: 12 Procedure Description: After informed consent was obtained the patient was taken to the procedure room and placed in a left decubitous position. Monitors were applied and a time out was done. The patients name, date of , procedure, allergies to medications and metal in their body was reviewed. The patient was then sedated. Once sedated and comfortable a rectal exam was done. External exam was normal. Internal exam revealed a normal sphincter tone and no palpable masses. The scope was then introduced and retrofelexed. No internal hemorrhoids were identified. The scope was then advanced to the cecum without difficulty. The TI and appendiceal orifice were identified. The prep was good. The scope was then slowly retracted over 12 minutes back into the rectum. SHe had x3, 5 mm polyps at 30 cm. These are removed with cold biting forcep. She had x1 polyp at 20 cm. This is removed with cold biting forcep. She has a few small scattered diverticuli throughout the colon from the sigmoid to the right colon. The majority are confined to the right colon. There is no signs of active bleeding or infection. The scope was removed and the patient was woken up and taken back to Same day surgery in stable condition. The patient tolerated the procedure well and there were no immediate complications. Follow up: The patient should follow up in 7 years-path pd, unless they develop changes in bowel habits or other new gastrointestinal complaints.
--- NOTE | 2021-05-18 12:05 | W.ANESPOSTOP ---
Postoperative Evaluation Date, Time and Location Date Performed: 05/18/21 Time Performed: 12:05 Patient Location: Day Surgery Unit Vital Signs Most Recent Imported Vital Signs: Most Recent Vital Signs Temp Pulse Resp BP Pulse Ox 36.2 C L 71 18 146/87 H 97 05/18/21 10:00 05/18/21 10:00 05/18/21 10:00 05/18/21 10:00 05/18/21 10:00 Most Recent Manually Entered Vital Signs: Adult Blood Pressure: 134/86 Heart Rate: 85 Respirations: 12 Oxygen Saturation (%): 94 Temperature (C): 36.5 C Pain Score (0-10 Scale): 0 Assessment Mental Status: Awake (Alert & Oriented to Patient Baseline) Airway and Respiratory Function: Patent airway with normal (patient baseline) respiratory exam Cardiovascular Function: Hemodynamically Stable Hydration Status: Adequately Hydrated Nausea & Vomiting: No Nausea or Vomiting Pain: Pt. Denies Any Pain Peripheral Nerve Block: Patient did not receive a nerve block
[2021-05-18 12:07] VITALS: BP 134/86; PULSE 85; RESP 12; TEMPC 36.5; O2SAT 94
--- NOTE | 2021-05-18 12:07 | PDOC.DSDIS_ITS ---
Discharge Plan Disposition Patient Disposition: HOME Condition: Good Discharge Details Reason For Visit: colon scope Attending Provider: Perri Mcdonald Primary Care Provider: Luna Freire Home Meds and New Rx's Prescriptions: Continued hydrochlorothiazide 25 MG tablet 25 mg PO DAILY RF: 0 simvastatin 40 MG tablet 40 mg PO HS RF: 0 nystatin 100,000 unit/gram powder 1 applic topical BID RF: 0 Discontinued bisacodyl [Dulcolax (bisacodyl)] 5 mg tablet,delayed release (DR/EC) 5 mg PO ONCE Qty: 4 RF: 0 polyethylene glycol 3350 17 gram/dose powder 238 g PO ONCE Qty: 238 RF: 0 Discharge Instructions Additional Instructions: DSU Colonoscopy Post- Op Instructions Instructions for Everyone who is given Anesthesia: For your safety, please do the following for the next twenty-four (24) hours: *Do Not operate a motor vehicle (car, truck, motorcycle, etc.) *Do Not drink alcoholic beverages or use any recreational drugs for the first 24 hours or while taking pain medications. The medications in your body may have a reaction that can be dangerous. *Do Not make any important decisions or sign any important papers. Findings: x3 polyps diverticula Follow up: My office will send a letter in approximately 3 weeks with results of the polyp and when/if we want you to repeat the colonoscopy 1. No lifting over 20 pounds or strenuous activity for the first 24 hours after your procedure. After 24 hours there are no restrictions on your activity but you may feel fatigued for a few days. 2. After you arrive home you may have a light meal and return to your normal diet as you can tolerate it without feeling sick to your stomach. 3. You may have a bloated, gaseous feeling in your belly (abdomen) after a colonoscopy. Passing gas and belching will help. Walking or lying down on your left side with your knees flexed may relieve the discomfort. Call the office at [phone] (Office) or [phone] (Hospital) right away if you notice any of the following: a.Vomiting of blood or ?coffee ground stools?. b.Rectal bleeding 1Tbsp, blood clots or continuous bleeding. c.Severe belly (abdominal) pain. d.A hard distended belly (abdomen) and an inability to pass gas. 4. Please don?t expect to have a normal BM (bowel movement) for 2-3 days after your procedure. 5. If there are questions regarding the findings of your procedure, please contact your doctor 6. If you are unable to contact your doctor with a problem, contact the hospital at [phone]. 7. Continue all your regular medications unless directed otherwise. I understand the above instructions and have no questions. Signature of Patient or Adult Escort Name of Responsible Adult Escort Signature of Nurse Date/Time Activity:: see above Diet:: see above Discharge Orders Discharge Orders: Discharge Order (Routine); Ordered 05/17/21 Ordered By: Perri Mcdonald DS: Diagnosis Discharge Diagnosis (1) Adenomatous polyps: Status: Acute (2) Diverticula, colon, congenital: Status: Acute
[2021-05-18 12:35] VITALS: BP 147/81; PULSE 66; RESP 18; TEMP 36.1; O2SAT 96
== END 2021-05-18 09:39 | disposition home or self-care (01) ==
PROVIDERS: PCP Family Medicine; Visit Provider Surgery
PROC: 0DJD8ZZ Inspection of Lower Intestinal Tract, Via Natural or Artificial Opening Endoscopic (ICD-10-PCS; CPT 45378; principal; 2021-05-18 10:15)
DX: Z12.11 Encounter for screening for malignant neoplasm of colon (principal); Z86.010 Personal history of colon polyps; K57.30 Diverticulosis of large intestine without perforation or abscess without bleeding; K63.5 Polyp of colon
CPT/HCPCS: 45380; 88305; J2001

== ENCOUNTER 2021-08-06 14:31 | Outpatient (REF) | payer OTHER, SELFPAY ==
[2021-08-06 14:13] LABS: HCT 45.5 % (36.0-46.0); HGB 14.7 g/dL (11.2-15.7); MCH 28.4 pg (27.0-33.0); MCHC 32.3 % (32.0-36.0); MCV 87.8 fL (80-95); MPV 12.3 fL (8.0-11.0); Platelet Count 169 10^3/uL (130-400); RBC 5.18 10^6/uL (3.93-5.22); RDW-SD 48.1 fL; WBC 6.75 10^3/uL (4.4-10.8)
[2021-08-06 14:54] LABS: ALT 23 U/L (14-59); AST 16 U/L (15-37); Albumin 3.5 g/dL (3.4-5.0); Alkaline Phosphatase 82 U/L (46-116); Anion Gap 8.4 mmol/L (3-11); BUN 16 mg/dL (7-18); Bilirubin, Total 0.7 mg/dL (0.2-1.0); CO2 30.6 mmol/L (21.0-32.0); CREATININE 0.8 mg/dL (0.55-1.02); Calcium 9.5 mg/dL (8.5-10.1); Calculated LDL 88 mg/dL (<100); Chloride 107 mmol/L (98-107); Cholesterol 156 mg/dL (<200); Glucose 87 mg/dL (74-106); HDL Cholesterol 46 mg/dL (40-60); Potassium 4.2 mmol/L (3.5-5.1); Sodium 146 mmol/L (136-145); Total Protein 6.8 g/dL (6.4-8.2); Triglyceride 112 mg/dL (<150)
== END 2021-08-06 14:32 | disposition home or self-care (01) ==
LOC: NCHCN 14:31
PROVIDERS: PCP Family Medicine; Visit Provider Family Medicine
DX: E78.5 Hyperlipidemia, unspecified (principal); I10 Essential (primary) hypertension; E66.9 Obesity, unspecified
CPT/HCPCS: 80053; 80061; 85027

== ENCOUNTER 2022-08-08 15:27 | Outpatient (REF) | payer MEDICARE, SELFPAY ==
[2022-08-08 16:44] LABS: ALT 23 U/L (14-59); AST 12 U/L (15-37); Albumin 3.6 g/dL (3.4-5.0); Alkaline Phosphatase 79 U/L (46-116); Anion Gap 8.9 mmol/L (3-11); BUN 18 mg/dL (7-18); Bilirubin, Total 0.7 mg/dL (0.2-1.0); CO2 31.1 mmol/L (21.0-32.0); CREATININE 0.8 mg/dL (0.55-1.02); Calculated LDL 86 mg/dL (<100); Chloride 103 mmol/L (98-107); Cholesterol 169 mg/dL (<200); Estimated GFR 79.22 (mL/min/1.73m2); Glucose 87 mg/dL (74-106); HDL Cholesterol 47 mg/dL (40-60); Potassium 4.4 mmol/L (3.5-5.1); Sodium 143 mmol/L (136-145); Total Protein 7.1 g/dL (6.4-8.2); Triglyceride 180 mg/dL (<150)
[2022-08-08 16:51] LABS: Vitamin D 25 Total 24.1 ng/mL (30-100)
== END 2022-08-08 15:28 | disposition home or self-care (01) ==
LOC: NCHCN 15:27
PROVIDERS: PCP Family Medicine; Visit Provider Family Medicine
DX: I10 Essential (primary) hypertension (principal); E66.9 Obesity, unspecified; E78.5 Hyperlipidemia, unspecified; Z00.00 Encounter for general adult medical examination without abnormal findings
CPT/HCPCS: 80053; 80061; 82306

== ENCOUNTER 2023-05-29 01:37 | Outpatient (CLI) | payer MEDICARE, SELFPAY ==
--- NOTE | 2023-05-29 | DI.DEXA_ITS ---
Exam(s) XR DEXA BONE DENSITY W/WO EVELYN EXAM: XR DEXA BONE DENSITY W/WO EVELYN CLINICAL HISTORY: SCREENING FOR OSTEOPOROSIS IN POSTMENOPAUSAL WOMAN,Z78.0 TECHNIQUE: Routine DEXA evaluation of the lumbar spine, hip, or forearm. COMPARISON: Prior DEXA scan July 2018 FINDINGS: Performed on a [employer] unit. Lateral image: No compression fracture evident. Lumbar Spine total T-score: 1.6. Prior 2018 reading was 0.5. Hip total T-score:1.2. Prior 2018 reading was 1.1. Independent reading at the level of the femoral neck yields T-score of 0.7 Forearm total T-score: -0.7 IMPRESSION: Bone mineral density measures in the normal range. Fracture risk is low. Note: Any spine fracture indicates 5x risk for subsequent spine fracture and 2x risk for subsequent h ip fracture. World Health Organization criteria for BMD interpretation classify patients: Normal...... T- Score at or above -1.0 Osteopenic... T- Score between -1.0 and -2.5 Osteoporosis... T-Score at or below -2.5
--- NOTE | 2023-05-29 07:38 | DI.MAMMO_ITS ---
Exam(s) MAMMO SCREENING EXAM: MAMMO SCREENING CLINICAL HISTORY: SCREENING, Z12.31. TECHNIQUE: Bilateral full field digital CC and MLO mammographic images were obtained with 3D tomosyn thesis and utilizing computer aided detection (CAD). COMPARISON: Prior mammograms were reviewed. FINDINGS: There are no new findings in left breast. In the right breast anteriorly there is a new well-defined nodule located 2 cm in from the nipple and measuring 5 x 4 mm. Further imaging required. No malignant-appearing microcalcification groups is region or elsewhere in either breast. Other nodules in both breasts are stable and have the appearance of benign lymph nodes. There is no significant architectural distortion nor skin thickening-retraction. IMPRESSION: 1. No radiographic evidence of malignancy in left breast. 2. 5 x 4 mm new nodule anteriorly in the right breast. Spot compression view and ultrasound recommen ded. BI-RADS Category 0 - Assessment Incomplete: Need additional imaging evaluation Breast Density - Category B - Scattered areas of fibroglandular density Breast density Category C or D implies that the patient has dense breast tissue. Dense breast tissue can make it harder to find cancer on a mammogram. Dense breast tissue is also associated with an incr eased risk of breast cancer. This information about the result of the mammogram report was provided to the patient to raise their awareness. Use this report when you speak with the patient about their risks for breast cancer, which includes their family history. At that time, you may recommend additional screening tests (Ultrasoun d or MRI) as these tests may add significant information. A negative radiographic report should not delay biopsy if a dominant or clinically suspicious mass is present. Up to ten percent of cancers are not identified on mammography. A negative report may reinforce clinical impression. Adenosis and dense breasts may obscure an underlying neoplasm. False positive reports average 6 to 10%. Patient will receive a letter notifying them of these results.
== END 2023-05-29 01:57 ==
LOC: DI 01:37
PROVIDERS: PCP Family Medicine; Visit Provider Family Medicine
DX: Z12.31 Encounter for screening mammogram for malignant neoplasm of breast (principal); R92.8 Other abnormal and inconclusive findings on diagnostic imaging of breast; Z78.0 Asymptomatic menopausal state; Z13.820 Encounter for screening for osteoporosis
CPT/HCPCS: 77063; 77067; 77080

== ENCOUNTER 2023-06-02 02:58 | Outpatient (CLI) | payer MEDICARE, SELFPAY ==
--- NOTE | 2023-06-02 | DI.US_ITS ---
Exam(s) MG MAMMO SCREEN CALL BACK UNI US BREAST RT LIMITED EXAM: MG MAMMO SCREEN CALL BACK UNI CLINICAL HISTORY: F/U MAMMO, R92.8, NEW NODULE. TECHNIQUE: Craniocaudal and mediolateral oblique spot compression digital Mammography views of the r ight breast followed by Tomosynthesis and right breast ultrasound. COMPARISON: MG Screening Bilat Mammo from 04/02/2016 MG Screening Bilat Mammo from 05/25/2018 MG MG MAMMO SCREENING from 08/04/2019 MG MG MAMMO SCREENING from 05/29/2023 US US BREAST RT LIMITED from 06/02/2023 FINDINGS: Mammography/Tomosynthesis: Masses/Architectural Distortion: Persistent circumscribed 5 millimeter nodule in the subareolar tissu e. Microcalcifictions: No suspicious pleomorphic-type are seen. Skin Thickening/Nipple Retraction: None. Right breast US: Echotexture: Normal appearance of the glandular tissue. Shadowing: No suspicious foci. Cyst: 5 x 4 x 4 millimeter 9 o'clock position 1 cm from the nipple corresponding to the mammographic nodularity Solid lesions: None seen. Ductal dilation: None. IMPRESSION: 1. No evidence of malignancy is noted. 2. Unless there is more urgent need, follow-up screening mammography is recommended, as per [employer] guidelines. 3. The findings were discussed with the patient on the date of the examination. BI-RADS Category 2 - Benign Findings Breast Density - Category B - Scattered areas of fibroglandular density A negative radiographic report should not delay biopsy if a dominant or clinically suspicious mass is present. Up to ten percent of cancers are not identified on mammography. A negative report may reinforce clinical impression. Adenosis and dense breasts may obscure an underlying neoplasm. False positive reports average 6 to 10%. Patient will receive a letter notifying them of these results.
== END 2023-06-02 03:18 ==
LOC: DI 02:59
PROVIDERS: PCP Family Medicine; Visit Provider Family Medicine
DX: N63.15 Unspecified lump in the right breast, overlapping quadrants (principal); Z12.31 Encounter for screening mammogram for malignant neoplasm of breast
CPT/HCPCS: 76642; 77063; 77067

== ENCOUNTER 2024-03-22 13:07 | Outpatient (REF) | payer MEDICARE, SELFPAY ==
[2024-03-22 14:59] LABS: ALT 24 U/L (14-59); AST 11 U/L (15-37); Albumin 3.8 g/dL (3.4-5.0); Alkaline Phosphatase 79 U/L (46-116); Anion Gap 9.7 mmol/L (3-11); BUN 23 mg/dL (7-18); Bilirubin, Total 0.7 mg/dL (0.2-1.0); CO2 30.3 mmol/L (21.0-32.0); CREATININE 0.8 mg/dL (0.55-1.02); Calcium 9.7 mg/dL (8.5-10.1); Calculated LDL 94 mg/dL (<100); Chloride 105 mmol/L (98-107); Cholesterol 171 mg/dL (<200); Estimated GFR 78.24 (mL/min/1.73m2); Glucose 87 mg/dL (74-106); HDL Cholesterol 50 mg/dL (40-60); Potassium 4.2 mmol/L (3.5-5.1); Sodium 145 mmol/L (136-145); Total Protein 6.8 g/dL (6.4-8.2); Triglyceride 139 mg/dL (<150)
[2024-03-22 15:07] LABS: Vitamin D 25 Total 34.4 ng/mL (30-100)
== END 2024-03-22 13:08 | disposition home or self-care (01) ==
LOC: NCHCN 13:07
PROVIDERS: PCP Family Medicine; Visit Provider Family Medicine
DX: E78.5 Hyperlipidemia, unspecified (principal); Z00.00 Encounter for general adult medical examination without abnormal findings; I10 Essential (primary) hypertension
CPT/HCPCS: 80053; 80061; 82306

== ENCOUNTER → 2024-06-01 01:11 | Outpatient (CLI) | payer MEDICARE, SELFPAY ==
--- NOTE | 2024-06-01 | DI.MAMMO_ITS ---
Exam(s) MAMMO SCREENING EXAM: MAMMO SCREENING CLINICAL HISTORY: Z12.31 Screening. TECHNIQUE: Bilateral full field digital CC and MLO mammographic images were obtained with 3D tomosyn thesis and utilizing computer aided detection (CAD). COMPARISON: Prior mammograms were reviewed. FINDINGS: There has been no significant change in the appearance and distribution of the fibroglandular tissue. The previously described anteriorly located nodule in the right breast appears unchanged from mammogr am of May 2023 and was shown to be a cyst on ultrasound examination at that time. It appears unchan ged. There are no new spiculated masses nor new malignant appearing microcalcification groups. There is no significant architectural distortion nor skin thickening-retraction. IMPRESSION: Stable benign-appearing findings. No radiographic evidence of malignancy. BI-RADS Category 2 - Benign Findings Breast Density - Category B - Scattered areas of fibroglandular density Breast density Category C or D implies that the patient has dense breast tissue. Dense breast tissue can make it harder to find cancer on a mammogram. Dense breast tissue is also associated with an incr eased risk of breast cancer. This information about the result of the mammogram report was provided to the patient to raise their awareness. Use this report when you speak with the patient about their risks for breast cancer, which includes their family history. At that time, you may recommend additional screening tests (Ultrasoun d or MRI) as these tests may add significant information. A negative radiographic report should not delay biopsy if a dominant or clinically suspicious mass is present. Up to ten percent of cancers are not identified on mammography. A negative report may reinforce clinical impression. Adenosis and dense breasts may obscure an underlying neoplasm. False positive reports average 6 to 10%. Patient will receive a letter notifying them of these results.
== END ==
PROVIDERS: PCP Family Medicine; Visit Provider Family Medicine
DX: Z12.31 Encounter for screening mammogram for malignant neoplasm of breast (principal)
CPT/HCPCS: 77063; 77067

== ENCOUNTER 2025-03-31 08:07 | Outpatient (REF) | payer MEDICARE, SELFPAY ==
[2025-03-31 17:40] LABS: ALT 16 U/L (14-59); AST 14 U/L (15-37); Albumin 3.6 g/dL (3.4-5.0); Alkaline Phosphatase 82 U/L (46-116); Anion Gap 8.8 mmol/L (3-11); BUN 20 mg/dL (7-18); Bilirubin, Total 0.9 mg/dL (0.2-1.0); CO2 29.2 mmol/L (21.0-32.0); CREATININE 0.8 mg/dL (0.55-1.02); Calcium 9.7 mg/dL (8.5-10.1); Calculated LDL 87 mg/dL (<100); Chloride 103 mmol/L (98-107); Cholesterol 155 mg/dL (<200); Estimated GFR 77.75 (mL/min/1.73m2); Glucose 93 mg/dL (74-106); HDL Cholesterol 43 mg/dL (>or=50); Potassium 3.9 mmol/L (3.5-5.1); Sodium 141 mmol/L (136-145); Total Protein 6.7 g/dL (6.4-8.2); Triglyceride 128 mg/dL (<150); Vitamin D 25 Total 34 ng/mL (30-100)
== END 2025-03-31 08:08 | disposition home or self-care (01) ==
LOC: NCHCN 08:07
PROVIDERS: PCP Family Medicine; Visit Provider Family Medicine
DX: I10 Essential (primary) hypertension (principal); E55.9 Vitamin D deficiency, unspecified; E78.5 Hyperlipidemia, unspecified
CPT/HCPCS: 80053; 80061; 82306

== ENCOUNTER 2025-05-11 00:24 | Outpatient (CLI) | payer MEDICARE, SELFPAY ==
--- NOTE | 2025-05-11 12:11 | DI.MAMMO_ITS ---
Exam(s) MAMMO SCREENING EXAM: MAMMO SCREENING CLINICAL HISTORY: mammo screening Z12.31 TECHNIQUE: Mammograms were interpreted according to the usual protocol including computer analysis with CAD system, tomosynthesis and C-view imaging. COMPARISON: 2015 through 2023 FINDINGS: The breasts are composed of scattered fibroglandular densities, Breast Density category B. No suspicious masses or suspicious microcalcifications are seen. No skin thickening or abnormal axillary lymph nodes are seen. There has been no significant change from prior exams. IMPRESSION: BI-RADS Category 1, Negative mammogram Yearly screening mammography is recommended. Breast Density - Category B - There are scattered areas of fibroglandular density. Breast density Category C or D implies that the patient has dense breast tissue. Dense breast tissue can make it harder to find cancer on a mammogram. Dense breast tissue is also associated with an increased risk of breast cancer. This information about the result of the mammogram report was provided to the patient to raise their awareness. Use this report when you speak with the patient about their risks for breast cancer, which includes their family history. At that time, you may recommend additional screening tests (Ultrasound or MRI) as these tests may add significant information. A negative radiographic report should not delay biopsy if a dominant or clinically suspicious mass is present. Up to ten percent of cancers are not identified on mammography. A negative report may reinforce clinical impression. Adenosis and dense breasts may obscure an underlying neoplasm. False positive reports average 6 to 10%. Patient will receive a letter notifying them of these results.
== END 2025-05-11 00:44 ==
PROVIDERS: PCP Family Medicine; Visit Provider Family Medicine
DX: Z12.31 Encounter for screening mammogram for malignant neoplasm of breast (principal); R92.323 Mammographic fibroglandular density, bilateral breasts
CPT/HCPCS: 77063; 77067

== ENCOUNTER 2025-08-09 10:24 | Outpatient (CLI) | payer MEDICARE, SELFPAY ==
--- NOTE | 2025-08-09 | DI.US_ITS ---
Exam(s) US LOWER EXTREMITY VENOUS LT EXAM: US LOWER EXTREMITY VENOUS LT CLINICAL HISTORY: SWELLING OF LEFT LOWER EXTREMITY, M79.89. TECHNIQUE: Lower extremity venous ultrasound performed using grayscale, color- flow, and spectral Doppler analysis. COMPARISON: No exams were available for comparison FINDINGS: The common femoral, femoral and popliteal veins demonstrate normal compressibility, augmentation, and color Doppler. The posterior tibial and peroneal veins are patent. No saphenous vein thrombosis or other superficial venous thrombosis is seen. There is a Nails's cyst measuring 12.5 cm in length by 1.9 x 0.7 cm. IMPRESSION: Nails's cyst. No evidence of DVT. DATA REPOSITORY:
== END 2025-08-09 10:44 ==
LOC: DI 10:24
PROVIDERS: PCP Family Medicine; Visit Provider Nurse Practitioner Family
DX: M79.89 Other specified soft tissue disorders (principal)
CPT/HCPCS: 93971